=== PATIENT | female | born 1960 | race Caucasian/White ===

== ENCOUNTER 2018-02-19 10:41 | Inpatient (IN) | payer BC, OTHER ==
[2018-02-19] MEDS ORDERED: ONDANSETRON 4 MG TAB.RAPDIS PO ONE (11:05)
--- NOTE | 2018-02-19 11:06 | ER Document Report ---
ED Medical Screen (RME) - General Chief Complaint: Abdominal Pain Stated Complaint: CONSTIPATION/VOMITING Time Seen by Provider: 02/19/18 10:59 TRAVEL OUTSIDE OF THE [place] IN LAST 30 DAYS: No - HPI Notes: 02/19/18 11:05 Constipation nausea vomiting ongoing for a week [facility] center for further evaluation and generic [id number] stool softeners - Related Data Allergies/Adverse Reactions: magnesium citrate Adverse Reaction (Verified 02/19/18 10:43) VOMITING Past Medical History - Social History Frequency of alcohol use: None Drug Abuse: None - Past Medical History Cardiac Medical History: Reports: Hx Hypertension Renal/ Medical History: Denies: Hx Peritoneal Dialysis Past Surgical History: Reports: Hx Cholecystectomy, Hx Orthopedic Surgery - knee surgery, Hx Tonsillectomy Review of Systems - Review of Systems Gastrointestinal: Abdominal pain, Vomiting, Constipation Physical Exam - Vital signs Vitals: Temp Pulse Resp BP Pulse Ox 98.1 F 100 20 171/73 H 96 02/19/18 10:51 02/19/18 10:51 02/19/18 10:51 02/19/18 10:51 02/19/18 10:51 - Respiratory Respiratory status: No respiratory distress Chest status: Nontender Breath sounds: Normal Chest palpation: Normal - Cardiovascular Rhythm: Regular Heart sounds: Normal auscultation Course - Vital Signs Vital signs: Temp Pulse Resp BP Pulse Ox 98.1 F 100 20 171/73 H 96 02/19/18 10:51 02/19/18 10:51 02/19/18 10:51 02/19/18 10:51 02/19/18 10:51
[2018-02-19 11:24] LABS: ABSOLUTE LYMPHOCYTES (AUTO) 1.9 10^3/uL (0.5-4.7); ABSOLUTE MONOCYTES (AUTO) 0.9 10^3/uL (0.1-1.4); ABSOLUTE NEUT (AUTO) 7.7 10^3/uL (1.7-8.2); BASOPHILS % (AUTO) 0.4 % (0-2); EOSINOPHILS % (AUTO) 0.3 % (0-6); HEMATOCRIT 46.1 % (36.0-47.0); HEMOGLOBIN 15.6 g/dL (12.0-15.5); LYMPHOCYTES % (AUTO) 18.1 % (13-45); MEAN CORPUSCULAR HEMOGLOBIN 29.6 pg (27.0-33.4); MEAN CORPUSCULAR HGB CONC 33.8 g/dL (32.0-36.0); MEAN CORPUSCULAR VOLUME 87 fl (80-97); MONOCYTES % (AUTO) 8.4 % (3-13); PLATELET COUNT 317 10^3/uL (150-450); RED BLOOD COUNT 5.27 10^6/uL (3.72-5.28); RED CELL DISTRIBUTION WIDTH 16.4 % (11.5-14.0); SEGMENTED NEUTROPHILS % (AUTO) 72.8 % (42-78); TOTAL CELLS COUNTED % (AUTO) 100 %; WHITE BLOOD COUNT 10.6 10^3/uL (4.0-10.5)
[2018-02-19 11:45] LABS: ALANINE AMINOTRANSFERASE 20 U/L (9-52); ALBUMIN 4.5 g/dL (3.5-5.0); ALKALINE PHOSPHATASE 100 U/L (38-126); ANION GAP 15 (5-19); ASPARTATE AMINO TRANSFERASE 18 U/L (14-36); BILIRUBIN,DIRECT 0.2 mg/dL (0.0-0.4); BILIRUBIN,TOTAL 0.7 mg/dL (0.2-1.3); BLOOD UREA NITROGEN 7 mg/dL (7-20); CALCIUM 9.9 mg/dL (8.4-10.2); CARBON DIOXIDE 25 mmol/L (22-30); CHLORIDE 103 mmol/L (98-107); GLUCOSE 104 mg/dL (75-110); LIPASE 25.9 U/L (23-300); POTASSIUM 4.1 mmol/L (3.6-5.0); SODIUM 142.9 mmol/L (137-145); TOTAL PROTEIN 7.1 g/dL (6.3-8.2)
--- NOTE | 2018-02-19 11:54 | RADIOLOGY REPORT (SQ) ---
EXAM DESCRIPTION: ACUTE ABDOMEN SERIES COMPLETED DATE/TIME: 02/19/2018 11:28 am REASON FOR STUDY: constipation abd pain COMPARISON: None. NUMBER OF VIEWS: Three views. TECHNIQUE: Frontal chest, supine abdomen and upright/decubitus abdomen radiographic images acquired. LIMITATIONS: None. FINDINGS: CHEST: Lungs clear of infiltrates. FREE AIR: None. No abnormal gas collections. BOWEL GAS PATTERN: There is mild colonic distention with infrequent air-fluid levels on the upright v iew. No free air. There is a moderate amount of stool throughout the colon. CALCIFICATIONS: No suspicious calcifications. HARDWARE: There are surgical clips in the right upper quadrant. SOFT TISSUES: No gross mass or suggestion of organomegaly. BONES: No acute fracture. No worrisome bone lesions. OTHER: No other significant finding. IMPRESSION: Gas pattern is nonobstructive. There is a moderate amount of stool throughout the colon . TECHNICAL DOCUMENTATION: JOB ID: [id number] [employer]- All Rights Reserved Reading location - IP/workstation name: [email or web address]
[2018-02-19] MEDS ORDERED: DICYCLOMINE HCL 20 MG TABLET PO ONE (12:43)
[2018-02-19] MEDS ORDERED: NORMAL SALINE 1000 ML 1,000 ML IV ONE (12:43)
[2018-02-19] MEDS ORDERED: LISINOPRIL 10 MG TABLET PO ONE (12:43)
[2018-02-19] MEDS ORDERED: MINERAL OIL 30 ML UDCUP PR ONE (12:44)
--- NOTE | 2018-02-19 12:48 | ER Document Report ---
ED GI/ - General Chief Complaint: Abdominal Pain Stated Complaint: CONSTIPATION/VOMITING Time Seen by Provider: 02/19/18 10:59 Mode of Arrival: Ambulatory Information source: Patient Notes: Patient presents complaining of a one-week history of low abdominal pain. Patient states that she has had nausea and vomiting since yesterday. Patient states that she has had issues with constipation and has been using laxatives [id number] without any improvement. Patient does report one small bowel movement yesterday. Patient does report a previous history of diverticulitis in the past. TRAVEL OUTSIDE OF THE [place] IN LAST 30 DAYS: No - HPI Patient complains to provider of: Abdominal pain, Vomiting. No: Diarrhea Onset: Last week Timing/Duration: Worse Quality of pain: Cramping Pain Level: 3 Vaginal bleeding (Compared to normal period): None Associated symptoms: Constipation, Nausea, Vomiting. denies: Diarrhea, Dysuria , Fever, Urinary hesitancy, Urinary frequency, Urinary retention Exacerbated by: Denies Relieved by: Denies Similar symptoms previously: Yes Recently seen / treated by doctor: No - Related Data Allergies/Adverse Reactions: magnesium citrate Adverse Reaction (Verified 02/19/18 10:43) VOMITING Past Medical History - General Information source: Patient - Social History Smoking Status: Current Every Day Smoker Frequency of alcohol use: None Drug Abuse: None Occupation: Office work Lives with: Family Family History: Reviewed & Not Pertinent Patient has suicidal ideation: No Patient has homicidal ideation: No - Past Medical History Cardiac Medical History: Reports: Hx Hypertension Renal/ Medical History: Denies: Hx Peritoneal Dialysis GI Medical History: Reports: Hx Diverticulitis Past Surgical History: Reports: Hx Cholecystectomy, Hx Orthopedic Surgery - knee surgery, Hx Tonsillectomy Review of Systems - Review of Systems Constitutional: No symptoms reported. denies: Fever, Recent illness EENT: No symptoms reported Cardiovascular: No symptoms reported. denies: Chest pain Respiratory: No symptoms reported. denies: Cough, Short of breath Gastrointestinal: Abdominal pain, Nausea, Vomiting, Constipation. denies: Diarrhea, Poor appetite Genitourinary: No symptoms reported. denies: Dysuria, Flank pain Female Genitourinary: No symptoms reported Musculoskeletal: No symptoms reported. denies: Back pain Skin: No symptoms reported Hematologic/Lymphatic: No symptoms reported Neurological/Psychological: No symptoms reported Physical Exam - Vital signs Vitals: Temp Pulse Resp BP Pulse Ox 98.1 F 100 20 171/73 H 96 02/19/18 10:51 02/19/18 10:51 02/19/18 10:51 02/19/18 10:51 02/19/18 10:51 - General General appearance: Appears well, Alert In distress: None - HEENT Head: Normocephalic, Atraumatic Eyes: Normal Conjunctiva: Normal Neck: Normal, Supple. No: Lymphadenopathy - Respiratory Respiratory status: No respiratory distress Chest status: Nontender Breath sounds: Normal. No: Rales, Rhonchi, Stridor, Wheezing Chest palpation: Normal - Cardiovascular Rhythm: Regular Heart sounds: S1 appreciated, S2 appreciated Murmur: No - Abdominal Inspection: Normal Distension: No distension Bowel sounds: Normal Tenderness: Tender - Generalized abdominal tenderness. No: Guarding Organomegaly: No organomegaly - Back Back: Normal, Nontender. No: CVA tenderness - Extremities General upper extremity: Normal inspection, Normal ROM General lower extremity: Normal inspection, Normal ROM - Neurological Neuro grossly intact: Yes Cognition: Normal Molly Coma Scale Eye Opening: Spontaneous [place] Coma Scale Verbal: Oriented Molly Coma Scale Motor: Obeys Commands Molly Coma Scale Total: 15 - Psychological Associated symptoms: Normal affect, Normal mood - Skin Skin Temperature: Warm Skin Moisture: Dry Skin Color: Normal Course - Re-evaluation Re-evalutation: 02/19/18 14:46 Patient reports abdominal pain is improved somewhat after taking the Bentyl as well as IV fluids. Patient states nausea and vomiting has improved. Patient with only small amount returned after enema. 02/19/18 15:22 Patient complains of continued abdominal pain. Additional imaging ordered. 02/19/18 19:[address] Quigley regarding patient's CT scan report. Recommends consultation with surgeon. Consulted with Dr. Huizar regarding patient CT report. Recommends consultation with hospitalist and that if patient is admitted he will be happy to consult on patient. 02/19/18 19:[address] Lee who declines excepting patient for admission, recommends having surgery to admit the patient. Consulted with Dr. Huizar again , Dr. Huizar reviewed patient's CT images and agrees to come and evaluate patient. 02/19/18 20:27 Dr. Huizar evaluated patient and plans to take patient to the OR for bowel obstruction. - Vital Signs Vital signs: Temp Pulse Resp BP Pulse Ox 99.1 F 90 16 142/72 H 96 02/19/18 17:36 02/19/18 17:36 02/19/18 17:36 02/19/18 17:36 02/19/18 17:36 - Laboratory Result Diagrams: 02/19/18 11:11 02/19/18 11:11 Laboratory results interpreted by me: 02/19/18 11:11 WBC 10.6 H Hgb 15.6 H RDW 16.4 H 02/19/18 18:52 Labs- Entire Visit 02/19/18 02/19/18 11:11 11:11 WBC 10.6 H RBC 5.27 Hgb 15.6 H Hct 46.1 MCV 87 MCH 29.6 MCHC 33.8 RDW 16.4 H Plt Count 317 Seg Neutrophils % 72.8 Lymphocytes % 18.1 Monocytes % 8.4 Eosinophils % 0.3 Basophils % 0.4 Absolute Neutrophils 7.7 Absolute Lymphocytes 1.9 Absolute Monocytes 0.9 Absolute Eosinophils 0.0 Absolute Basophils 0.0 Sodium 142.9 Potassium 4.1 Chloride 103 Carbon Dioxide 25 Anion Gap 15 BUN 7 Creatinine 0.57 Est GFR ( Amer) > 60 Est GFR (Non-Af Amer) > 60 Glucose 104 Calcium 9.9 Total Bilirubin 0.7 Direct Bilirubin 0.2 Neonat Total Bilirubin Not Reportable Neonat Direct Bilirubin Not Reportable Neonat Indirect Bili Not Reportable AST 18 ALT 20 Alkaline Phosphatase 100 Total Protein 7.1 Albumin 4.5 Lipase 25.9 02/19/18 19:36 Labs- Entire Visit 02/19/18 02/19/18 11:11 11:11 WBC 10.6 H RBC 5.27 Hgb 15.6 H Hct 46.1 MCV 87 MCH 29.6 MCHC 33.8 RDW 16.4 H Plt Count 317 Seg Neutrophils % 72.8 Lymphocytes % 18.1 Monocytes % 8.4 Eosinophils % 0.3 Basophils % 0.4 Absolute Neutrophils 7.7 Absolute Lymphocytes 1.9 Absolute Monocytes 0.9 Absolute Eosinophils 0.0 Absolute Basophils 0.0 Sodium 142.9 Potassium 4.1 Chloride 103 Carbon Dioxide 25 Anion Gap 15 BUN 7 Creatinine 0.57 Est GFR ( Amer) > 60 Est GFR (Non-Af Amer) > 60 Glucose 104 Calcium 9.9 Total Bilirubin 0.7 Direct Bilirubin 0.2 Neonat Total Bilirubin Not Reportable Neonat Direct Bilirubin Not Reportable Neonat Indirect Bili Not Reportable AST 18 ALT 20 Alkaline Phosphatase 100 Total Protein 7.1 Albumin 4.5 Lipase 25.9 - Diagnostic Test Radiology reviewed: Reports reviewed Discharge - Discharge Clinical Impression: Abdominal pain Qualifiers: Abdominal location: unspecified location Qualified Code(s): R10.9 - Unspecified abdominal pain Bowel obstruction Qualifiers: Intestinal obstruction type: unspecified Intestinal obstruction extent: unspecified extent Qualified Code(s): K56.609 - Unspecified intestinal obstruction, unspecified as to partial versus complete obstruction Condition: Stable Disposition: ADMITTED INPATIENT Admitting Provider: Surgicalist Unit Admitted: Medical Floor
[2018-02-19] MEDS ORDERED: PROCHLORPERAZINE EDISYLATE INJ 10 MG/2 ML VIAL IV ONE (15:41)
--- NOTE | 2018-02-19 18:51 | RADIOLOGY REPORT (SQ) ---
EXAM DESCRIPTION: CT ABD/PELVIS WITH IV ORAL COMPLETED DATE/TIME: 02/19/2018 6:37 pm REASON FOR STUDY: abd pain, n/v COMPARISON: None. TECHNIQUE: CT scan of the abdomen and pelvis performed using helical scanning technique with dynamic intravenous contrast injection. No oral contrast. Images reviewed with lung, soft tissue, and bone windows. Reconstructed coronal and sagittal MPR images reviewed. Delayed images for evaluation of the urinary system also acquired. All images stored on PACS. All CT scanners at this facility use dose modulation, iterative reconstruction, and/or weight based d osing when appropriate to reduce radiation dose to as low as reasonably achievable (ALARA). [facility]: Dose Right [facility]: CareDose [facility]: Dose Right [facility]: Teradose 4D [facility]: SeatMe CONTRAST TYPE AND DOSE: contrast/concentration: Isovue 350.00 mg/ml; Total Contrast Delivered: 92.0 ml; Total Saline Delivered: 45.0 ml RENAL FUNCTION: BUN 7, creatinine 0.51 RADIATION DOSE: CT Rad equipment meets quality standard of care and radiation dose reduction techniq ues were employed. CTDIvol: 15.6 - 18.4 mGy. DLP: 1744 mGy-cm.. LIMITATIONS: None. FINDINGS: LOWER CHEST: No acute findings in the chest. There is a small hiatal hernia. LIVER: Normal size. No masses. No dilated ducts. SPLEEN: Normal size. No focal lesions. PANCREAS: No masses. No significant calcifications. No adjacent inflammation or peripancreatic fluid collections. Pancreatic duct not dilated. GALLBLADDER: No identified stones by CT criteria. No inflammatory changes to suggest cholecystitis. ADRENAL GLANDS: No significant masses or asymmetry. RIGHT KIDNEY AND URETER: No solid masses. No significant calcifications. No hydronephrosis or hyd roureter. LEFT KIDNEY AND URETER: There are small hypoattenuating lesions most likely cysts but too small accur ately characterize. No significant calcifications. No hydronephrosis or hydroureter. AORTA AND VESSELS: No aneurysm. No dissection. Renal arteries, SMA, celiac without stenosis. RETROPERITONEUM: No retroperitoneal adenopathy, hemorrhage or masses. BOWEL AND PERITONEAL CAVITY: There is fecal material throughout a dilated colon. Findings are suspic ious for obstipation. There is soft tissue attenuation in the sigmoid colon. This could represent o bstructing mass or fecal material. No small-bowel dilatation. APPENDIX: Normal. PELVIS: No mass. No free fluid. Normal bladder. ABDOMINAL WALL: No masses. No hernias. BONES: No significant or acute findings. OTHER: No other significant finding. IMPRESSION: Questionable soft tissue mass versus stool in the sigmoid colon. Proximal to this the c olon is dilated with fecal material. Sigmoid mass is suspected. TECHNICAL DOCUMENTATION: JOB ID: [id number] Quality ID # [id number]: Final reports with documentation of one or more dose reduction techniques (e.g., Au tomated exposure control, adjustment of the mA and/or kV according to patient size, use of iterative reconstruction technique) 2010 [employer]- All Rights Reserved Reading location - IP/workstation name: [email or web address]
[2018-02-19] MEDS ORDERED: PROMETHAZINE HCL INJ 25 MG/1 ML VIAL IV ONE (20:14)
--- NOTE | 2018-02-19 20:37 | PDOC H&P ---
History of Present Illness Patient complains of: abdominal pain, nausea, vomiting History of Present Illness: FLYNN SALTER I is a 57 year old female with a 2 day h/o increasing abdominal distention, pain, and obstipation. She has a h/o diverticulitis ( approximately 5 known occurrences) and a recent incomplete colonoscopy due to "kinking". The pt has had nausea and vomiting. She denies fevers, chills, chest pain, dizziness, orthostasis, headache, blurry vision, melena, hematochezia, hematemesis. Nothing makes her symptoms better or worse. Her pain does not radiate. She has no known family history of colon cancer. Past Medical History Cardiac Medical History: Reports: Hypertension GI Medical History: Reports: Diverticulitis Past Surgical History Past Surgical History: Reports: Cholecystectomy, Orthopedic Surgery - knee surgery, Tonsillectomy, Tubal Ligation Social History Lives with: Family Smoking Status: Current Every Day Smoker Frequency of Alcohol Use: Rare Hx Recreational Drug Use: No Hx Prescription Drug Abuse: No Family History Family History: Malignancy - brother with Pancreatic cancer Parental Family History Reviewed: Yes Children Family History Reviewed: Yes Sibling(s) Family History Reviewed.: Yes Medication/Allergy Allergies/Adverse Reactions: magnesium citrate Adverse Reaction (Verified 02/19/18 10:43) VOMITING Review of Systems Constitutional: PRESENT: anorexia. ABSENT: chills, fatigue, fever(s), headache( s), weakness Eyes: ABSENT: visual disturbances Ears: ABSENT: hearing changes Nose, Mouth, and Throat: ABSENT: sore throat Cardiovascular: ABSENT: chest pain, edema Respiratory: ABSENT: cough, dyspnea Gastrointestinal: PRESENT: abdominal pain, bloating, constipation, heartburn, nausea, vomiting. ABSENT: diarrhea, dysphagia, hematemesis, hematochezia, melena Musculoskeletal: ABSENT: back pain Integumentary: ABSENT: pruritus, rash Neurological: ABSENT: confusion, convulsions, dizziness Psychiatric: ABSENT: anxiety, depression Endocrine: ABSENT: cold intolerance, heat intolerance Hematologic/Lymphatic: ABSENT: easy bleeding, easy bruising Physical Exam Vital Signs: Temp Pulse Resp BP Pulse Ox 99.1 F 90 16 142/72 H 96 02/19/18 17:36 02/19/18 17:36 02/19/18 17:36 02/19/18 17:36 02/19/18 17:36 Intake & Output 02/18/18 02/19/18 02/20/18 06:59 06:59 06:59 Intake Total 1000 Balance 1000 Weight 85 kg General appearance: PRESENT: mild distress - abdominal discomfort Head exam: PRESENT: atraumatic, normocephalic Eye exam: PRESENT: EOMI, PERRLA. ABSENT: scleral icterus Mouth exam: PRESENT: neck supple Teeth exam: ABSENT: poor dentation Neck exam: ABSENT: meningismus, tenderness, thyromegaly, tracheal deviation Respiratory exam: PRESENT: clear to auscultation irais. ABSENT: chest wall tenderness Cardiovascular exam: PRESENT: RRR Pulses: PRESENT: normal radial pulses Vascular exam: PRESENT: normal capillary refill. ABSENT: pallor GI/Abdominal exam: PRESENT: distended, soft, tenderness. ABSENT: rebound, rigid Rectal exam: PRESENT: deferred Extremities exam: ABSENT: clubbing Musculoskeletal exam: ABSENT: deformity Neurological exam: PRESENT: alert, awake, oriented to person, oriented to place , oriented to time, oriented to situation, CN II-XII grossly intact Psychiatric exam: ABSENT: agitated, anxious, depressed Focused psych exam: ABSENT: delusional Skin exam: ABSENT: cyanosis, erythema, jaundice Results Laboratory Results: 02/19/18 11:11 02/19/18 11:11 02/19/18 02/19/18 11:11 11:11 WBC 10.6 H RBC 5.27 Hgb 15.6 H Hct 46.1 MCV 87 MCH 29.6 MCHC 33.8 RDW 16.4 H Plt Count 317 Seg Neutrophils % 72.8 Lymphocytes % 18.1 Monocytes % 8.4 Eosinophils % 0.3 Basophils % 0.4 Absolute Neutrophils 7.7 Absolute Lymphocytes 1.9 Absolute Monocytes 0.9 Absolute Eosinophils 0.0 Absolute Basophils 0.0 Sodium 142.9 Potassium 4.1 Chloride 103 Carbon Dioxide 25 Anion Gap 15 BUN 7 Creatinine 0.57 Est GFR ( Amer) > 60 Est GFR (Non-Af Amer) > 60 Glucose 104 Calcium 9.9 Total Bilirubin 0.7 AST 18 ALT 20 Alkaline Phosphatase 100 Total Protein 7.1 Albumin 4.5 Lipase 25.9 Impressions: Abdomen/Pelvis CT 02/19/18 00:00 IMPRESSION: Questionable soft tissue mass versus stool in the sigmoid colon. Proximal to this the colon is dilated with fecal material. Sigmoid mass is suspected. Acute Abdomen Series 02/19/18 11:04 IMPRESSION: Gas pattern is nonobstructive. There is a moderate amount of stool throughout the colon. Status: Image reviewed by me - CT scan with signs of complete obstruction at the recto-sigmoid junction. Assessment & Plan - Diagnosis (1) Colonic obstruction Is this a current diagnosis for this admission?: Yes - Plan Summary Plan Summary: 57 y/o F with abdominal pain, distention, nausea, vomiting, and obstipation. She has evidence of near-complete obstruction of her colon on CT scan. She has an area of intense thickening at the rectosigmoid junction. I have offered her surgical resection with colostomy placement for her obstruction. She has agreed to this. Risks/benefits discussed, informed consent obtained, and all questions answered.
[2018-02-19] MEDS ORDERED: CEFOXITIN INJ 1 GM VIAL IV ONE (21:09)
[2018-02-19] MEDS ORDERED: PROPOFOL INJ 200 MG/20 ML VIAL IV ONE (21:18)
[2018-02-19] MEDS ORDERED: MIDAZOLAM 2 MG/2 ML INJ ONE (21:18)
[2018-02-19] MEDS ORDERED: EPHEDRINE SULFATE INJ 50 MG/1 ML AMPULE ONE (21:18)
[2018-02-19] MEDS ORDERED: FENTANYL CITRATE INJ/PF 250 MCG/5 ML AMPULE ONE (21:18)
[2018-02-19] MEDS ORDERED: HYDROMORPHONE HCL INJ/PF 2 MG/ML AMPULE ONE (21:18)
[2018-02-19] MEDS ORDERED: CEFOXITIN SODIUM 2 GM in DEXTROSE 5%-WATER 100 ML IV ONE (21:30)
[2018-02-19] MEDS ORDERED: MEPERIDINE HCL/PF INJ 25 MG/1 ML DISP.SYRIN IV PRN (21:57)
[2018-02-19] MEDS ORDERED: FENTANYL CITRATE INJ/PF 100 MCG/2 ML AMPUL IV PRN ×3 (21:57)
[2018-02-19] MEDS ORDERED: PROMETHAZINE HCL INJ 25 MG/1 ML VIAL IV PRN ×2 (21:57)
[2018-02-19] MEDS ORDERED: ONDANSETRON HCL INJ/PF 4 MG/2 ML SDV IV PRN (21:57)
[2018-02-19] MEDS ORDERED: DIPHENHYDRAMINE HCL 50 MG/ML VIAL IV PRN (21:57)
[2018-02-20] MEDS ORDERED: ONDANSETRON HCL INJ/PF 4 MG/2 ML SDV IV PRN (02:17)
[2018-02-20] MEDS ORDERED: CEFOXITIN INJ 1 GM VIAL IV PRN (02:29)
[2018-02-20] MEDS: MORPHINE SULFATE 10 MG/ML INJ IV PRN ×3 (02:34→16:59)
[2018-02-20] MEDS: DEXTROSE 5%-LACTATED RINGERS 1,000 ML IV PRN ×2 (02:35→13:58)
[2018-02-20] MEDS: ACETAMINOPHEN 1,000 MG/100 ML RTUPB IV SCH ×3 (03:32→18:56)
[2018-02-20] MEDS ORDERED: CEFOXITIN INJ 1 GM VIAL ONE (05:26)
[2018-02-20] MEDS: CEFOXITIN SODIUM 2 GM in DEXTROSE 5%-WATER 100 ML IV SCH ×2 (05:36→13:58)
[2018-02-20] MEDS: KETOROLAC TROMETHAMINE INJ/PF 30 MG/1 ML SDV IV SCH ×3 (05:37→22:11)
[2018-02-20] MEDS ORDERED: ONDANSETRON HCL INJ/PF 4 MG/2 ML SDV ONE (09:01)
[2018-02-20] MEDS ORDERED: SUCCINYLCHOLINE CHLORIDE INJ 200 MG/10 ML VIAL ONE (09:01)
[2018-02-20] MEDS ORDERED: NEOSTIGMINE METHYLSULFATE 10 MG/10 ML VIAL ONE (09:01)
[2018-02-20] MEDS ORDERED: GLYCOPYRROLATE 1 MG/5 ML SYRINGE ONE (09:01)
[2018-02-20] MEDS ORDERED: ROCURONIUM BROMIDE INJ 50 MG/5 ML VIAL IV ONE (09:01)
[2018-02-20] MEDS: ENOXAPARIN SODIUM INJ 40 MG/0.4 ML DISP.SYRIN SUBCUT SCH (10:36)
[2018-02-20] MEDS: FAMOTIDINE INJ/PF 20 MG/2 ML SDV IV SCH ×2 (10:36→22:11)
[2018-02-20 11:13] LABS: ABSOLUTE LYMPHOCYTES (AUTO) 0.6 10^3/uL (0.5-4.7); ABSOLUTE MONOCYTES (AUTO) 0.5 10^3/uL (0.1-1.4); ABSOLUTE NEUT (AUTO) 6.3 10^3/uL (1.7-8.2); BASOPHILS % (AUTO) 0.1 % (0-2); EOSINOPHILS % (AUTO) 0.1 % (0-6); HEMATOCRIT 39.3 % (36.0-47.0); LYMPHOCYTES % (AUTO) 7.8 % (13-45); MEAN CORPUSCULAR HGB CONC 32.9 g/dL (32.0-36.0); MEAN CORPUSCULAR VOLUME 88 fl (80-97); MONOCYTES % (AUTO) 6.5 % (3-13); PLATELET COUNT 240 10^3/uL (150-450); RED BLOOD COUNT 4.47 10^6/uL (3.72-5.28); RED CELL DISTRIBUTION WIDTH 15.8 % (11.5-14.0); SEGMENTED NEUTROPHILS % (AUTO) 85.5 % (42-78); TOTAL CELLS COUNTED % (AUTO) 100 %; WHITE BLOOD COUNT 7.3 10^3/uL (4.0-10.5)
[2018-02-20 11:25] LABS: ANION GAP 9 (5-19); BLOOD UREA NITROGEN 9 mg/dL (7-20); CALCIUM 8.6 mg/dL (8.4-10.2); CARBON DIOXIDE 25 mmol/L (22-30); CHLORIDE 105 mmol/L (98-107); GLUCOSE 131 mg/dL (75-110); POTASSIUM 4.9 mmol/L (3.6-5.0); SODIUM 138.5 mmol/L (137-145)
[2018-02-21] MEDS ORDERED: FUROSEMIDE INJ/PF 40 MG/4 ML SDV IV ONE (01:00)
[2018-02-21] MEDS: DEXTROSE 5%-LACTATED RINGERS 1,000 ML IV PRN ×2 (01:44→10:50)
[2018-02-21] MEDS: ACETAMINOPHEN 1,000 MG/100 ML RTUPB IV SCH ×2 (03:00→10:50)
[2018-02-21 03:56] LABS: ABSOLUTE MONOCYTES (AUTO) 0.7 10^3/uL (0.1-1.4); ABSOLUTE NEUT (AUTO) 8.7 10^3/uL (1.7-8.2); BASOPHILS % (AUTO) 0.2 % (0-2); EOSINOPHILS % (AUTO) 0.3 % (0-6); HEMATOCRIT 34.7 % (36.0-47.0); HEMOGLOBIN 11.6 g/dL (12.0-15.5); LYMPHOCYTES % (AUTO) 9.6 % (13-45); MEAN CORPUSCULAR HEMOGLOBIN 29.4 pg (27.0-33.4); MEAN CORPUSCULAR HGB CONC 33.5 g/dL (32.0-36.0); MEAN CORPUSCULAR VOLUME 88 fl (80-97); MONOCYTES % (AUTO) 6.9 % (3-13); PLATELET COUNT 202 10^3/uL (150-450); RED BLOOD COUNT 3.96 10^6/uL (3.72-5.28); RED CELL DISTRIBUTION WIDTH 15.4 % (11.5-14.0); TOTAL CELLS COUNTED % (AUTO) 100 %; WHITE BLOOD COUNT 10.5 10^3/uL (4.0-10.5)
[2018-02-21 04:11] LABS: ANION GAP 7 (5-19); BLOOD UREA NITROGEN 9 mg/dL (7-20); CALCIUM 8.5 mg/dL (8.4-10.2); CARBON DIOXIDE 27 mmol/L (22-30); CHLORIDE 106 mmol/L (98-107); GLUCOSE 114 mg/dL (75-110); POTASSIUM 4.5 mmol/L (3.6-5.0); SODIUM 140.1 mmol/L (137-145)
[2018-02-21] MEDS: KETOROLAC TROMETHAMINE INJ/PF 30 MG/1 ML SDV IV SCH ×2 (06:36→14:33)
--- NOTE | 2018-02-21 10:05 | Operative Report ---
Nonrecallable Operative Report DATE OF SURGERY: 02/20/18 PREOPERATIVE DIAGNOSIS: Colonic obstruction POSTOPERATIVE DIAGNOSIS: 1. Distal colonic obstruction at the level of the rectosigmoid junction. 2. Involvement of the appendix in the inflammatory process. 3. No evidence of malignant process grossly. OPERATION: 1. Exploratory laparotomy. 2. Descending/sigmoid colon resection. 3. Appendectomy. 4. Splenic flexure mobilization. 5. Endloop left lower quadrant colostomy. SURGEON: ERLINDA JUAREZ ANESTHESIA: GA TISSUE REMOVED OR ALTERED: 1. descending and sigmoid colon. 2. Appendix COMPLICATIONS: Appendix involved with the inflammation, requiring resection. ESTIMATED BLOOD LOSS: 300 cc PROCEDURE: Drains/implants: None. Procedure in detail: After informed consent was obtained, the patient was brought to the operating room and laid in the supine position. The area of the abdomen was prepped and draped in a normal, sterile fashion. A 10 blade scalpel was used to create an incision from just above the umbilicus to the pubis. Dissection was carried through the subcutaneous tissue using sharp and blunt dissection. The linea alba fascia was incised sharply. The abdomen was entered sharply. The Omni retractor was placed on the patient and used for retraction. There was a dense inflammatory process in the pelvis at approximately the level of the rectosigmoid junction. There was adhesions of the small bowel to this area. These were lysed easily. The appendix was densely adherent to the sigmoid colon. The appendix was carefully elevated away from the area of inflammation, however it was damaged during this maneuver. After inspection, it was felt necessary to remove the appendix. The mesoappendix was taken down using clamps and ties. The base of the appendix was ligated using 0 Vicryl suture x2. The appendix was amputated and passed off the field. Attention was then turned to the freeing of the sigmoid colon. The entire colon was massively dilated and full of thick, semi-solid stool. An enterotomy was created and decompression of the colon was undertaken. The proximal sigmoid colon was then closed using the contour stapler. Once the proximal sigmoid colon was divided, the descending colon was displaced superiorly, to facilitate visualization. The sigmoid colon was then elevated away from the left lower pelvic sidewall. This was done with great care, so as not to injure the ureter. This was done using sharp and blunt dissection. The inflammation extended inferiorly down to the rectosigmoid junction. The sigmoid colon was freed from the mesentery and elevated anteriorly. Once an area distal to the inflammation could be reached, the distal colon was divided using the contour stapling device. The rectal stump was marked with a Prolene suture. The sigmoid colon was then passed off the field and sent to pathology. Next, attention was turned to assessing the colon for colostomy. The remaining sigmoid and descending colon were then inspected. They appeared somewhat dusky. Secondary to this, the splenic flexure was taken down. The white line of Toldt on the left was divided using Bovie electrocautery. The omentum was freed from the transverse colon, also using Bovie electrocautery. After the splenic flexure was completely mobilized, the proximal descending colon appeared pink and healthy. The unhealthy portion of the sigmoid and descending colon were then divided with the contour stapling device. They were removed from the mesentery using the LigaSure device. After this was completed , an incision was created in the left lower quadrant skin. Dissection was carried through the subcutaneous tissue using blunt dissection. A cruciate incision was created in the fascia. The proximal descending colon was then brought out through the incision. The abdomen was then copiously irrigated and suctioned. Attention was then turned to closure of the abdomen. The midline fascia was closed using #1 double-stranded, looped PDS suture in simple running fashion. The overlying skin was loosely approximated using skin beatriz. The skin was packed with Xeroform gauze. Attention was then turned to maturing of the colostomy. The left lower quadrant colostomy was performed in end-loop fashion. A 24 Serbian Gordon was used as a bar to elevate the ostomy. An incision was created in the colon using electrocautery. The colostomy was matured in Dianna fashion using 3-0 Vicryl suture, circumferentially. Once this was completed, an ostomy appliance was placed, and the procedure was concluded. All sponge, instrument, and needle counts were correct x2. Condition: Fair.
[2018-02-21] MEDS: FAMOTIDINE INJ/PF 20 MG/2 ML SDV IV SCH (10:50)
[2018-02-21] MEDS: ENOXAPARIN SODIUM INJ 40 MG/0.4 ML DISP.SYRIN SUBCUT SCH (10:51)
[2018-02-21] MEDS ORDERED: HYDROCODONE/ACETAMINOPHEN 10-325 MG TABLET PO PRN (17:06)
--- NOTE | 2018-02-21 19:52 | PDOC PROGRESS REPORT ---
Subjective Reason For Visit: COLONIC OBSTRUCTION Physical Exam Vital Signs: Temp Pulse Resp BP Pulse Ox 98.6 F 85 27 H 125/69 94 02/21/18 16:00 02/21/18 08:00 02/21/18 19:00 02/21/18 16:16 02/21/18 19:00 Intake & Output 02/20/18 02/21/18 02/22/18 06:59 06:59 06:59 Intake Total 6200 2400 1717 Output Total 175 2420 1630 Balance 6025 -20 87 Weight 89.1 kg 89.4 kg Results Laboratory Results: 02/21/18 03:51 02/21/18 03:51 02/21/18 02/21/18 03:51 03:51 WBC 10.5 RBC 3.96 Hgb 11.6 L Hct 34.7 L MCV 88 MCH 29.4 MCHC 33.5 RDW 15.4 H Plt Count 202 Seg Neutrophils % 83.0 H Lymphocytes % 9.6 L Monocytes % 6.9 Eosinophils % 0.3 Basophils % 0.2 Absolute Neutrophils 8.7 H Absolute Lymphocytes 1.0 Absolute Monocytes 0.7 Absolute Eosinophils 0.0 Absolute Basophils 0.0 Sodium 140.1 Potassium 4.5 Chloride 106 Carbon Dioxide 27 Anion Gap 7 BUN 9 Creatinine 0.48 L Est GFR ( Amer) > 60 Est GFR (Non-Af Amer) > 60 Glucose 114 H Calcium 8.5 Impressions: Abdomen/Pelvis CT 02/19/18 00:00 IMPRESSION: Questionable soft tissue mass versus stool in the sigmoid colon. Proximal to this the colon is dilated with fecal material. Sigmoid mass is suspected. Acute Abdomen Series 02/19/18 11:04 IMPRESSION: Gas pattern is nonobstructive. There is a moderate amount of stool throughout the colon. Assessment & Plan - Diagnosis (1) Colonic obstruction Is this a current diagnosis for this admission?: Yes - Plan Summary Plan Summary: This is a 57-year-old female status post sigmoid colon resection and descending colostomy. The patient is doing well today. She is tolerating liquids. Her colostomy is pink and productive. I will advance her diet. I will transfer her out of the ICU. Aggressive pulmonary toilet. Ambulate/out of bed. Begin oral pain meds.
[2018-02-21] MEDS ORDERED: ACETAMINOPHEN 325 MG TABLET ONE (20:33)
[2018-02-21] MEDS: ACETAMINOPHEN 325 MG TABLET PO PRN (20:40)
[2018-02-22] MEDS: FAMOTIDINE 20 MG TABLET PO SCH ×3 (00:14→21:59)
[2018-02-22] MEDS: KETOROLAC TROMETHAMINE INJ/PF 30 MG/1 ML SDV IV SCH ×4 (00:15→21:59)
[2018-02-22 04:41] LABS: ANION GAP 7 (5-19); BLOOD UREA NITROGEN 9 mg/dL (7-20); CALCIUM 8.4 mg/dL (8.4-10.2); CARBON DIOXIDE 26 mmol/L (22-30); CHLORIDE 107 mmol/L (98-107); GLUCOSE 83 mg/dL (75-110); POTASSIUM 3.8 mmol/L (3.6-5.0); SODIUM 139.5 mmol/L (137-145)
[2018-02-22] MEDS: ENOXAPARIN SODIUM INJ 40 MG/0.4 ML DISP.SYRIN SUBCUT SCH (10:15)
[2018-02-22] MEDS: ACETAMINOPHEN 325 MG TABLET PO PRN (16:08)
--- NOTE | 2018-02-22 18:42 | PDOC PROGRESS REPORT ---
Subjective Progress Note for:: 02/22/18 Reason For Visit: COLONIC OBSTRUCTION Physical Exam Vital Signs: Temp Pulse Resp BP Pulse Ox 98.0 F 103 H 18 145/68 H 96 02/22/18 10:00 02/22/18 10:00 02/22/18 10:00 02/22/18 10:00 02/22/18 10:00 Intake & Output 02/21/18 02/22/18 02/23/18 06:59 06:59 06:59 Intake Total 2400 2117 Output Total 2420 2630 1050 Balance -20 -513 -1050 Weight 89.4 kg 91.2 kg Results Laboratory Results: 02/21/18 03:51 02/22/18 03:53 02/22/18 03:53 Sodium 139.5 Potassium 3.8 Chloride 107 Carbon Dioxide 26 Anion Gap 7 BUN 9 Creatinine 0.58 Est GFR ( Amer) > 60 Est GFR (Non-Af Amer) > 60 Glucose 83 Calcium 8.4 Impressions: Abdomen/Pelvis CT 02/19/18 00:00 IMPRESSION: Questionable soft tissue mass versus stool in the sigmoid colon. Proximal to this the colon is dilated with fecal material. Sigmoid mass is suspected. Acute Abdomen Series 02/19/18 11:04 IMPRESSION: Gas pattern is nonobstructive. There is a moderate amount of stool throughout the colon. Assessment & Plan - Diagnosis (1) Colonic obstruction Is this a current diagnosis for this admission?: Yes - Plan Summary Plan Summary: This is a 57-year-old female status post sigmoid colon resection and descending colostomy. The patient is doing well today. She is tolerating liquids. Her colostomy is pink and productive. She is tolerating a diet. Aggressive pulmonary toilet. Ambulate/out of bed. Cont current pain meds.
[2018-02-23] MEDS: KETOROLAC TROMETHAMINE INJ/PF 30 MG/1 ML SDV IV SCH (06:22)
--- NOTE | 2018-02-23 07:26 | PDOC DISCHARGE SUMMARY ---
General - Admit/Disc Date/PCP Admission Date/Primary Care Provider: 02/19/18 20:44 Discharge Date: 02/23/18 - Discharge Diagnosis (1) Colonic obstruction Is this a current diagnosis for this admission?: Yes - Additional Information Discharge Diet: Regular Discharge Activity: No Lifting Over 10 Pounds Home Medications: Fexofenadine HCl [Suzi Allergy] 180 mg PO DAILY 02/20/18 Fluticasone Propionate [Flonase Nasal Buchanan 50 Mcg/Buchanan 16 gm] 1 spray NASL Q12 02/20/18 Lisinopril [Prinivil] 20 mg PO DAILY 02/20/18 Multivitamin [Daily Multiple Vitamin] 1 each PO DAILY 02/20/18 Naproxen [Naprosyn 375 Mg Tablet] 375 mg PO BIDP PRN 02/20/18 History of Present Illness History of Present Illness: FLYNN SALTER I is a 57 year old female with a 2 day h/o increasing abdominal distention, pain, and obstipation. She has a h/o diverticulitis ( approximately 5 known occurrences) and a recent incomplete colonoscopy due to "kinking". The pt has had nausea and vomiting. She denies fevers, chills, chest pain, dizziness, orthostasis, headache, blurry vision, melena, hematochezia, hematemesis. Nothing makes her symptoms better or worse. Her pain does not radiate. She has no known family history of colon cancer. Hospital Course Hospital Course: Patient was admitted for a colonic obstruction and taken to the operating room. Exploratory laparotomy was performed, where a tight stricture at the rectosigmoid junction was identified. The patient underwent a Chatman's procedure with descending colostomy. The patient was taken to the intensive care unit for close monitoring. The patient has done well after surgery. She is now ambulating, tolerating a diet, her bowels are moving, her pain is controlled with oral pain medications, and it was felt that she is reached maximal hospital benefit. At this time the patient is medically fit for discharge. Physical Exam Vital Signs: Temp Pulse Resp BP Pulse Ox 98.0 F 103 H 24 H 145/68 H 94 02/23/18 06:23 02/23/18 06:23 02/23/18 06:23 02/23/18 06:23 02/23/18 06:23 Intake & Output 02/22/18 02/23/18 02/24/18 06:59 06:59 06:59 Intake Total 2117 Output Total 2629 2049 Balance -513 -2049 Weight 91.2 kg Results Laboratory Results: 02/21/18 03:51 02/22/18 03:53 Impressions: Abdomen/Pelvis CT 02/19/18 00:00 IMPRESSION: Questionable soft tissue mass versus stool in the sigmoid colon. Proximal to this the colon is dilated with fecal material. Sigmoid mass is suspected. Acute Abdomen Series 02/19/18 11:04 IMPRESSION: Gas pattern is nonobstructive. There is a moderate amount of stool throughout the colon. Qualifiers - * PATIENT BEING DISCHARGED WITH ANY OF THE FOLLOWING DIAGNOSIS: No Plan Discharge Plan: Discharge home. Diet as tolerated. Activity: No lifting greater than 10 pounds x 6 weeks. Follow-up with me in 7 days. Okay to shower. No tub baths or swimming. [place] 10/325 mg p.o. every 6 hours as needed for pain. Time Spent: Less than 30 Minutes
[2018-02-23] MEDS: FAMOTIDINE 20 MG TABLET PO SCH (09:13)
[2018-02-23] MEDS: ENOXAPARIN SODIUM INJ 40 MG/0.4 ML DISP.SYRIN SUBCUT SCH ×2 (09:13→09:17)
[2018-02-23 10:56] VITALS: BP 165/85
== END 2018-02-23 10:44 | disposition home or self-care (01) | DRG 330 ==
LOC: ER 10:41 → EH 20:44 → ICU 02-20 02:11
PROVIDERS: ADMIT Surgery; ATTEND Surgery
PROC: 0DBM0ZZ Excision of Descending Colon, Open Approach (ICD-10-PCS; 2018-02-19)
PROC: 0D1M0Z4 Bypass Descending Colon to Cutaneous, Open Approach (ICD-10-PCS; 2018-02-19)
PROC: 0DTJ0ZZ Resection of Appendix, Open Approach (ICD-10-PCS; 2018-02-19)
PROC: 0DTN0ZZ Resection of Sigmoid Colon, Open Approach (ICD-10-PCS; principal; 2018-02-19 21:45)
DX: K56.691 Other complete intestinal obstruction (principal); K57.32 Diverticulitis of large intestine without perforation or abscess without bleeding; I10 Essential (primary) hypertension; F17.200 Nicotine dependence, unspecified, uncomplicated; K38.9 Disease of appendix, unspecified; Z90.49 Acquired absence of other specified parts of digestive tract; Z98.51 Tubal ligation status; Z80.0 Family history of malignant neoplasm of digestive organs; Z79.899 Other long term (current) drug therapy
CPT/HCPCS: 36415; 74022; 74177; 790; 80048; 80053; 83690; 83735; 85025; 88304; 88309; 88342; 94799; 96361; 96374; 96375; 99285; J0131; J0330; J0694; J0780; J1170; J1650; J1885; J2250; J2270; J2405; J2550; J2704; J3010; J3490; J7030; S0028; S0119

== ENCOUNTER 2018-07-21 05:33 | Day surgery (SDC) | payer OTHER ==
--- NOTE | 2018-07-14 10:49 | RADIOLOGY REPORT (SQ) ---
EXAM DESCRIPTION: CHEST PA/LATERAL COMPLETED DATE/TIME: 07/14/2018 10:36 am REASON FOR STUDY: PRE-OP COMPARISON: None. EXAM PARAMETERS: NUMBER OF VIEWS: two views TECHNIQUE: Digital Frontal and Lateral radiographic views of the chest acquired. RADIATION DOSE: NA LIMITATIONS: none FINDINGS: LUNGS AND PLEURA: No opacities, masses or pneumothorax. No pleural effusion. MEDIASTINUM AND HILAR STRUCTURES: No masses or contour abnormalities. HEART AND VASCULAR STRUCTURES: Heart normal size. No evidence for failure. BONES: No acute findings. HARDWARE: None in the chest. OTHER: No other significant finding. IMPRESSION: NO SIGNIFICANT RADIOGRAPHIC FINDING IN THE CHEST. TECHNICAL DOCUMENTATION: JOB ID: [id number] [employer]- All Rights Reserved Reading location - IP/workstation name: [email or web address]
[2018-07-14 11:48] LABS: HEMATOCRIT 44.3 % (36.0-47.0); MEAN CORPUSCULAR HEMOGLOBIN 27.8 pg (27.0-33.4); MEAN CORPUSCULAR VOLUME 82 fl (80-97); PLATELET COUNT 298 10^3/uL (150-450); RED CELL DISTRIBUTION WIDTH 17.9 % (11.5-14.0); WHITE BLOOD COUNT 7.9 10^3/uL (4.0-10.5)
[2018-07-14 12:15] LABS: ANION GAP 10 (5-19); BLOOD UREA NITROGEN 9 mg/dL (7-20); CALCIUM 10.2 mg/dL (8.4-10.2); CARBON DIOXIDE 27 mmol/L (22-30); CHLORIDE 105 mmol/L (98-107); GLUCOSE 97 mg/dL (75-110); POTASSIUM 4.6 mmol/L (3.6-5.0); SODIUM 141.8 mmol/L (137-145)
--- NOTE | 2018-07-14 17:19 | EKG REPORT ---
SEVERITY:- NORMAL ECG - SINUS RHYTHM : Confirmed by: Yancy Henderson 14-Jul-2018 17:18:40
[2018-07-21] MEDS ORDERED: ALBUTEROL SULFATE 0.083% NEB 2.5 MG/3 ML AMPUL NEB ONE (06:37)
[2018-07-21] MEDS ORDERED: PROPOFOL INJ 200 MG/20 ML VIAL IV ONE (07:02)
[2018-07-21] MEDS ORDERED: MEPERIDINE HCL/PF INJ 25 MG/1 ML DISP.SYRIN IV PRN (07:43)
[2018-07-21] MEDS ORDERED: DIPHENHYDRAMINE HCL 50 MG/ML VIAL IV PRN (07:43)
[2018-07-21] MEDS ORDERED: PROMETHAZINE HCL INJ 25 MG/1 ML VIAL IV PRN ×2 (07:43)
[2018-07-21] MEDS ORDERED: FENTANYL CITRATE INJ/PF 100 MCG/2 ML AMPUL IV PRN ×3 (07:43)
--- NOTE | 2018-07-21 08:17 | Discharge Summary ---
Discharge Summary (SDC) - Discharge Final Diagnosis: History of diverticulitis, unwanted colostomy, diverticulosis. Date of Surgery: 07/21/18 Discharge Date: 07/21/18 Condition: Stable Treatment or Instructions: Discharge home. Diet: Colonoscopy diet (patient has this information). Activity: Nonstrenuous. Follow-up for surgery on Friday. Referrals: FRANCIA FARRIS NP [Primary Care Provider] - Discharge Diet: Other (Comments) - Colonoscopy diet Respiratory Treatments at Home: Deep Breathing/Coughing, Incentive Spirometer Discharge Activity: Balance Activity w/Rest Home Care Assistance: None Needed Report the Following to Your Physician Immediately: Shortness of Breath, Nausea, Vomiting, Increase in Pain, Fever over 101 Degrees, Unusual Bleeding, Redness
--- NOTE | 2018-07-21 08:23 | Operative Report ---
Nonrecallable Operative Report DATE OF SURGERY: 07/21/18 PREOPERATIVE DIAGNOSIS: Unwanted colostomy. History of diverticulitis. POSTOPERATIVE DIAGNOSIS: 1. The same. 2. Diverticulosis OPERATION: Colonoscopy through stoma and rectum. SURGEON: ERLINDA JUAREZ ANESTHESIA: LMAC TISSUE REMOVED OR ALTERED: None COMPLICATIONS: None apparent ESTIMATED BLOOD LOSS: None PROCEDURE: Procedure in detail: After informed consent was obtained, the patient was brought to the operating room and laid in the supine position. The colonoscope was inserted into the left lower quadrant colostomy. The scope was pushed up the sigmoid and descending colon, across the transverse colon, down the ascending colon, and into the cecum. The ileocecal valve and appendiceal orifice were identified. The scope was then withdrawn, circumferentially noting the mucosa. The prep was fair. Multiple washings and suctioning were required in order to visualize the entirety of the mucosa. This was successful. The scope was withdrawn past the ascending colon, transverse colon, descending colon, sigmoid colon, and out of the colostomy site. There were scattered diverticulosis found throughout the descending and sigmoid colon, without signs of diverticulitis. Once the endoscope was removed from the colostomy site, attention was turned to evaluation of the rectal stump. The colonoscope was inserted into the rectum. There was mucus present in the rectum. The scope was pushed up the rectum and into the sigmoid colon. Approximately 15 cm of sigmoid and rectum were left in situ. There was mild colitis of disuse present. The staple line was easily identified. The scope was then withdrawn. No large polyps or areas consistent with malignancy were identified. The scope was removed from the rectum, and the procedure was concluded. All sponge, instrument, and needle counts were correct x2. Condition: Stable.
[2018-07-21 09:22] VITALS: BP 132/70
== END 2018-07-21 09:10 | disposition home or self-care (01) ==
LOC: OROUT 05:33
PROVIDERS: ATTEND Surgery
DX: K57.30 Diverticulosis of large intestine without perforation or abscess without bleeding (principal); Z93.3 Colostomy status; I10 Essential (primary) hypertension; F17.210 Nicotine dependence, cigarettes, uncomplicated; Z79.899 Other long term (current) drug therapy; Z01.818 Encounter for other preprocedural examination
CPT/HCPCS: 45378; 93005; 36415; 85027; 80048; 71046; 93010; J2704; 811

== ENCOUNTER 2018-07-24 05:48 | Inpatient (IN) | payer OTHER ==
[~2018-07-24 05:48] MED LIST: CEFOXITIN SODIUM 2 GM in DEXTROSE 5%-WATER 100 ML IV PRN; IBUPROFEN 800 MG in NORMAL SALINE 250 ML IV PRN; LACTATED RINGERS 1000 ML IV PRN; LIDOCAINE 0.5% INJ-PF (5 MG/ML) 50 ML SDV SUBCUT PRN
[2018-07-24] MEDS ORDERED: GLUCAGON,HUMAN RECOMB 1 MG INJ ONE (08:00)
[2018-07-24] MEDS ORDERED: BUPIVACAINE HCL 0.25 % INJ/PF (2.5 MG/1 ML) 30 ML VIAL ONE (08:00)
[2018-07-24] MEDS ORDERED: ALBUTEROL SULFATE 0.083% NEB 2.5 MG/3 ML AMPUL NEB ONE (08:56)
[2018-07-24] MEDS ORDERED: PHENYLEPHRINE HCL INJ/PF 10 MG/1 ML SDV ONE (10:11)
[2018-07-24] MEDS ORDERED: SUCCINYLCHOLINE CHLORIDE INJ 200 MG/10 ML VIAL ONE (10:11)
[2018-07-24] MEDS ORDERED: ROCURONIUM BROMIDE INJ 50 MG/5 ML VIAL IV ONE (10:11)
[2018-07-24] MEDS ORDERED: DEXAMETHASONE SOD PHOSPHATE INJ 4 MG/1 ML VIAL ONE (10:20)
[2018-07-24] MEDS ORDERED: MIDAZOLAM 2 MG/2 ML INJ ONE ×2 (10:20→17:38)
[2018-07-24] MEDS ORDERED: ONDANSETRON HCL INJ/PF 4 MG/2 ML SDV ONE (10:20)
[2018-07-24] MEDS ORDERED: FENTANYL CITRATE INJ/PF 100 MCG/2 ML AMPUL ONE ×2 (10:20→17:38)
[2018-07-24] MEDS ORDERED: EPHEDRINE SULFATE INJ 50 MG/1 ML AMPULE ONE ×2 (10:21→15:07)
[2018-07-24] MEDS ORDERED: HYDROMORPHONE HCL INJ/PF 2 MG/ML AMPULE ONE (10:21)
[2018-07-24] MEDS ORDERED: PROPOFOL INJ 200 MG/20 ML VIAL IV ONE (10:21)
[2018-07-24] MEDS ORDERED: ACETAMINOPHEN 0 MG/0 ML RTUPB IV ONE (10:21)
[2018-07-24] MEDS ORDERED: FENTANYL CITRATE INJ/PF 100 MCG/2 ML AMPUL IV PRN ×3 (11:00)
[2018-07-24] MEDS ORDERED: PROMETHAZINE HCL INJ 25 MG/1 ML VIAL IV PRN ×2 (11:00)
[2018-07-24] MEDS ORDERED: DIPHENHYDRAMINE HCL 50 MG/ML VIAL IV PRN (11:00)
[2018-07-24] MEDS ORDERED: MORPHINE SULFATE 10 MG/ML INJ IV PRN (11:00)
[2018-07-24] MEDS ORDERED: MEPERIDINE HCL/PF INJ 25 MG/1 ML DISP.SYRIN IV PRN (11:00)
[2018-07-24 14:37] LABS: HEMATOCRIT 33.2 % (36.0-47.0); MEAN CORPUSCULAR HEMOGLOBIN 27.8 pg (27.0-33.4); MEAN CORPUSCULAR HGB CONC 33.1 g/dL (32.0-36.0); MEAN CORPUSCULAR VOLUME 84 fl (80-97); PLATELET COUNT 259 10^3/uL (150-450); RED BLOOD COUNT 3.95 10^6/uL (3.72-5.28); RED CELL DISTRIBUTION WIDTH 16.9 % (11.5-14.0); WHITE BLOOD COUNT 16.2 10^3/uL (4.0-10.5)
[2018-07-24] MEDS ORDERED: SUGAMMADEX SODIUM 200 MG/2 ML SDV IV ONE (15:07)
[2018-07-24 16:31] LABS: HEMATOCRIT 28.9 % (36.0-47.0); HEMOGLOBIN 9.7 g/dL (12.0-15.5); MEAN CORPUSCULAR HEMOGLOBIN 28.6 pg (27.0-33.4); MEAN CORPUSCULAR HGB CONC 33.5 g/dL (32.0-36.0); MEAN CORPUSCULAR VOLUME 85 fl (80-97); PLATELET COUNT 220 10^3/uL (150-450); RED BLOOD COUNT 3.38 10^6/uL (3.72-5.28); RED CELL DISTRIBUTION WIDTH 16.5 % (11.5-14.0); WHITE BLOOD COUNT 12.4 10^3/uL (4.0-10.5)
[2018-07-24] MEDS ORDERED: GLUCAGON,HUMAN RECOMB 1 MG INJ SUBCUT PRN (17:41)
[2018-07-24] MEDS ORDERED: DEXTROSE 50%-WATER 25 GM/50 ML DISP.SYRIN IV PRN ×2 (17:41)
[2018-07-24] MEDS ORDERED: DEXTROSE 40% GEL 15 GM TUBE PO PRN ×2 (17:41)
[2018-07-24] MEDS ORDERED: MIDAZOLAM HCL 50 MG/100 ML RTUINJ ONE (17:58)
[2018-07-24] MEDS ORDERED: FUROSEMIDE INJ/PF 40 MG/4 ML SDV ONE (18:11)
--- NOTE | 2018-07-24 18:40 | RADIOLOGY REPORT (SQ) ---
EXAM DESCRIPTION: CHEST SINGLE VIEW COMPLETED DATE/TIME: 07/24/2018 6:20 pm REASON FOR STUDY: intubation COMPARISON: 07/14/2018 EXAM PARAMETERS: NUMBER OF VIEWS: One view. TECHNIQUE: Single frontal radiographic view of the chest acquired. RADIATION DOSE: NA LIMITATIONS: None. FINDINGS: LUNGS AND PLEURA: No opacities, masses or pneumothorax. No pleural effusion. MEDIASTINUM AND HILAR STRUCTURES: No masses. Contour normal. HEART AND VASCULAR STRUCTURES: Heart normal in size. Normal vasculature. BONES: No acute findings. HARDWARE: An endotracheal tube is present. The tip is 4 cm above the allen. OTHER: No other significant finding. IMPRESSION: Tube placement as described. No acute pulmonary findings. TECHNICAL DOCUMENTATION: JOB ID: [id number] [employer]- All Rights Reserved Reading location - IP/workstation name: [email or web address]
[2018-07-24 18:43] LABS: HEMATOCRIT 32.7 % (36.0-47.0); HEMOGLOBIN 11.2 g/dL (12.0-15.5); MEAN CORPUSCULAR HEMOGLOBIN 28.5 pg (27.0-33.4); MEAN CORPUSCULAR HGB CONC 34.2 g/dL (32.0-36.0); MEAN CORPUSCULAR VOLUME 83 fl (80-97); PLATELET COUNT 172 10^3/uL (150-450); RED BLOOD COUNT 3.92 10^6/uL (3.72-5.28); RED CELL DISTRIBUTION WIDTH 16.4 % (11.5-14.0); WHITE BLOOD COUNT 9.6 10^3/uL (4.0-10.5)
[2018-07-24 18:53] LABS: BLOOD UREA NITROGEN 10 mg/dL (7-20); CALCIUM 7.9 mg/dL (8.4-10.2); GLUCOSE 182 mg/dL (75-110); POTASSIUM 4.3 mmol/L (3.6-5.0)
[2018-07-24 18:59] LABS: ANION GAP 3 (5-19); CARBON DIOXIDE 22 mmol/L (22-30); CHLORIDE 113 mmol/L (98-107); SODIUM 138.4 mmol/L (137-145)
[2018-07-24] MEDS: FENTANYL CITRATE/PF 600 MCG/60 ML BAG IV PRN (19:37)
[2018-07-24] MEDS: MIDAZOLAM 2 MG/2 ML INJ IV PRN ×2 (19:38→21:56)
[2018-07-24] MEDS: CEFOXITIN SODIUM 2 GM in DEXTROSE 5%-WATER 100 ML IV SCH ×2 (20:33→22:48)
[2018-07-24] MEDS: ACETAMINOPHEN 1,000 MG/100 ML RTUPB IV SCH (21:56)
[2018-07-24] MEDS: FAMOTIDINE INJ/PF 20 MG/2 ML SDV IV SCH (21:56)
[2018-07-25] MEDS: FENTANYL CITRATE/PF 600 MCG/60 ML BAG IV PRN ×2 (00:06→05:02)
[2018-07-25] MEDS: MIDAZOLAM 2 MG/2 ML INJ IV PRN ×2 (00:07→02:47)
[2018-07-25] MEDS: DEXTROSE 5%-LACTATED RINGERS 1,000 ML IV PRN ×3 (00:14→20:14)
[2018-07-25] MEDS ORDERED: NORMAL SALINE 1000 ML 1,000 ML IV ONE ×2 (04:30→07:00)
[2018-07-25] MEDS: ACETAMINOPHEN 1,000 MG/100 ML RTUPB IV SCH ×3 (05:03→22:05)
[2018-07-25 05:33] LABS: ABSOLUTE LYMPHOCYTES (AUTO) 1.1 10^3/uL (0.5-4.7); ABSOLUTE MONOCYTES (AUTO) 1.1 10^3/uL (0.1-1.4); HEMATOCRIT 25.3 % (36.0-47.0); LYMPHOCYTES % (AUTO) 12.2 % (13-45); MEAN CORPUSCULAR HEMOGLOBIN 28.2 pg (27.0-33.4); MEAN CORPUSCULAR VOLUME 83 fl (80-97); MONOCYTES % (AUTO) 11.4 % (3-13); PLATELET COUNT 162 10^3/uL (150-450); RED BLOOD COUNT 3.05 10^6/uL (3.72-5.28); RED CELL DISTRIBUTION WIDTH 16.5 % (11.5-14.0); SEGMENTED NEUTROPHILS % (AUTO) 76.4 % (42-78); TOTAL CELLS COUNTED % (AUTO) 100 %; WHITE BLOOD COUNT 9.2 10^3/uL (4.0-10.5)
[2018-07-25 05:35] LABS: HEMOGLOBIN 8.6 g/dL (12.0-15.5)
[2018-07-25 05:48] LABS: ALANINE AMINOTRANSFERASE 27 U/L (9-52); ALBUMIN 1.8 g/dL (3.5-5.0); ALKALINE PHOSPHATASE 38 U/L (38-126); ASPARTATE AMINO TRANSFERASE 25 U/L (14-36); BILIRUBIN,DIRECT 0.2 mg/dL (0.0-0.4); BILIRUBIN,TOTAL 0.7 mg/dL (0.2-1.3); BLOOD UREA NITROGEN 11 mg/dL (7-20); CALCIUM 7.5 mg/dL (8.4-10.2); CHLORIDE 111 mmol/L (98-107); GLUCOSE 118 mg/dL (75-110); POTASSIUM 4.1 mmol/L (3.6-5.0); TOTAL PROTEIN 3.5 g/dL (6.3-8.2)
[2018-07-25 05:53] LABS: CARBON DIOXIDE 23 mmol/L (22-30); SODIUM 137.4 mmol/L (137-145)
[2018-07-25 05:54] LABS: ANION GAP 3 (5-19)
[2018-07-25] MEDS: FAMOTIDINE INJ/PF 20 MG/2 ML SDV IV SCH ×2 (09:15→22:04)
[2018-07-25] MEDS: HYDROMORPHONE HCL INJ/PF 2 MG/ML AMPULE IV PRN ×3 (11:45→20:13)
--- NOTE | 2018-07-25 12:24 | PDOC PROGRESS REPORT ---
Subjective Progress Note for:: 07/25/18 Reason For Visit: Z93.3 COLOSTOMY STATUS Physical Exam Vital Signs: Temp Pulse Resp BP Pulse Ox 97.8 F 90 17 92/43 L 100 07/25/18 10:00 07/25/18 10:00 07/25/18 10:00 07/25/18 10:00 07/25/18 10:00 Intake & Output 07/24/18 07/25/18 07/26/18 06:59 06:59 06:59 Intake Total 4884 2021 Output Total 2425 350 Balance 2459 1671 Weight 86.1 kg Results Laboratory Results: 07/25/18 05:23 07/25/18 05:23 07/24/18 07/24/18 07/24/18 09:11 13:50 14:27 WBC Cancelled 16.2 H RBC Cancelled 3.95 Hgb Cancelled 11.0 L Hct Cancelled 33.2 L MCV Cancelled 84 MCH Cancelled 27.8 MCHC Cancelled 33.1 RDW Cancelled 16.9 H Plt Count Cancelled 259 Seg Neutrophils % Lymphocytes % Monocytes % Eosinophils % Basophils % Absolute Neutrophils Absolute Lymphocytes Absolute Monocytes Absolute Eosinophils Absolute Basophils Sodium Potassium Chloride Carbon Dioxide Anion Gap BUN Creatinine Est GFR ( Amer) Est GFR (Non-Af Amer) Glucose Calcium Total Bilirubin AST ALT Alkaline Phosphatase Total Protein Albumin Blood Type A POSITIVE Antibody Screen NEGATIVE 07/24/18 07/24/18 07/24/18 16:25 18:20 18:20 WBC 12.4 H 9.6 RBC 3.38 L 3.92 Hgb 9.7 L 11.2 L Hct 28.9 L 32.7 L MCV 85 83 MCH 28.6 28.5 MCHC 33.5 34.2 RDW 16.5 H 16.4 H Plt Count 220 172 Seg Neutrophils % Lymphocytes % Monocytes % Eosinophils % Basophils % Absolute Neutrophils Absolute Lymphocytes Absolute Monocytes Absolute Eosinophils Absolute Basophils Sodium 138.4 Potassium 4.3 Chloride 113 H Carbon Dioxide 22 Anion Gap 3 L BUN 10 Creatinine 0.68 Est GFR ( Amer) > 60 Est GFR (Non-Af Amer) > 60 Glucose 182 H Calcium 7.9 L Total Bilirubin AST ALT Alkaline Phosphatase Total Protein Albumin Blood Type Antibody Screen 07/25/18 07/25/18 05:23 05:23 WBC 9.2 RBC 3.05 L Hgb 8.6 L D Hct 25.3 L MCV 83 MCH 28.2 MCHC 34.0 RDW 16.5 H Plt Count 162 Seg Neutrophils % 76.4 Lymphocytes % 12.2 L Monocytes % 11.4 Eosinophils % 0.0 Basophils % 0.0 Absolute Neutrophils 7.0 Absolute Lymphocytes 1.1 Absolute Monocytes 1.1 Absolute Eosinophils 0.0 Absolute Basophils 0.0 Sodium 137.4 Potassium 4.1 Chloride 111 H Carbon Dioxide 23 Anion Gap 3 L BUN 11 Creatinine 0.60 Est GFR ( Amer) > 60 Est GFR (Non-Af Amer) > 60 Glucose 118 H Calcium 7.5 L Total Bilirubin 0.7 AST 25 ALT 27 Alkaline Phosphatase 38 Total Protein 3.5 L Albumin 1.8 L Blood Type Antibody Screen Impressions: Chest X-Ray 07/24/18 17:45 IMPRESSION: Tube placement as described. No acute pulmonary findings. Assessment & Plan - Plan Summary Plan Summary: This is a 58-year-old female status post colostomy reversal. She was left intubated yesterday due to significant blood loss at the time of surgery and a long/protracted operation. The patient appears to be doing reasonably well this morning. Her blood pressure was marginal, and 2 L of normal saline were given. The patient responded appropriately to fluid resuscitation. Patient is awake and alert on the ventilator this morning. Her tidal volumes are greater than 1000 cc. Her leak test is normal and her NIF is favorable. Plan for extubation today to nasal cannula. Ice chips and popsicles are okay. Discontinue fentanyl drip, and initiate Dilaudid IV as needed. Add Toradol. Anemic, hemoglobin today at 8.6. Currently patient is stable. Will monitor hemoglobin levels. Patient may require transfusion if levels continue to trend downward. Hold Lovenox for now due to recent bleeding during surgery. Teds and SCDs for DVT prophylaxis. Continue Gordon today due to immobility. Awaiting bowel function.
[2018-07-25] MEDS: KETOROLAC TROMETHAMINE INJ/PF 30 MG/1 ML SDV IV SCH ×2 (13:11→22:04)
[2018-07-26 03:55] LABS: ABSOLUTE EOSINOPHILS # (AUTO) 0.1 10^3/uL (0.0-0.6); ABSOLUTE MONOCYTES (AUTO) 0.7 10^3/uL (0.1-1.4); ABSOLUTE NEUT (AUTO) 6.2 10^3/uL (1.7-8.2); BASOPHILS % (AUTO) 0.2 % (0-2); HEMATOCRIT 22.5 % (36.0-47.0); LYMPHOCYTES % (AUTO) 12.4 % (13-45); MEAN CORPUSCULAR HEMOGLOBIN 28.5 pg (27.0-33.4); MEAN CORPUSCULAR HGB CONC 33.9 g/dL (32.0-36.0); MEAN CORPUSCULAR VOLUME 84 fl (80-97); MONOCYTES % (AUTO) 9.3 % (3-13); PLATELET COUNT 151 10^3/uL (150-450); RED BLOOD COUNT 2.68 10^6/uL (3.72-5.28); RED CELL DISTRIBUTION WIDTH 17.1 % (11.5-14.0); SEGMENTED NEUTROPHILS % (AUTO) 77.1 % (42-78); TOTAL CELLS COUNTED % (AUTO) 100 %
[2018-07-26] MEDS: HYDROMORPHONE HCL INJ/PF 2 MG/ML AMPULE IV PRN ×4 (03:56→20:45)
[2018-07-26 03:58] LABS: HEMOGLOBIN 7.6 g/dL (12.0-15.5)
[2018-07-26 04:00] LABS: BLOOD UREA NITROGEN 6 mg/dL (7-20); CALCIUM 8.3 mg/dL (8.4-10.2); CARBON DIOXIDE 25 mmol/L (22-30); CHLORIDE 113 mmol/L (98-107); GLUCOSE 103 mg/dL (75-110); POTASSIUM 3.7 mmol/L (3.6-5.0); SODIUM 137.4 mmol/L (137-145)
[2018-07-26 04:11] LABS: ANION GAP -1 (5-19)
[2018-07-26] MEDS ORDERED: FUROSEMIDE INJ/PF 20 MG/2 ML SDV IV PRN (04:44)
[2018-07-26] MEDS: KETOROLAC TROMETHAMINE INJ/PF 30 MG/1 ML SDV IV SCH ×3 (05:47→21:32)
[2018-07-26] MEDS: ACETAMINOPHEN 1,000 MG/100 ML RTUPB IV SCH ×3 (05:48→21:31)
[2018-07-26] MEDS: FAMOTIDINE INJ/PF 20 MG/2 ML SDV IV SCH ×2 (10:03→21:31)
--- NOTE | 2018-07-26 11:12 | PDOC PROGRESS REPORT ---
Subjective Progress Note for:: 07/26/18 Reason For Visit: Z93.3 COLOSTOMY STATUS Physical Exam Vital Signs: Temp Pulse Resp BP Pulse Ox 98.8 F 94 18 122/56 L 98 07/26/18 10:00 07/26/18 10:00 07/26/18 10:00 07/26/18 10:00 07/26/18 10:00 Intake & Output 07/25/18 07/26/18 07/27/18 06:59 06:59 06:59 Intake Total 4884 3321 350 Output Total 2425 1755 275 Balance 2459 1566 75 Weight 86.1 kg 91.3 kg Results Laboratory Results: 07/26/18 03:29 07/26/18 03:29 07/24/18 07/26/18 07/26/18 09:11 03:29 03:29 WBC 8.0 RBC 2.68 L Hgb 7.6 L Hct 22.5 L MCV 84 MCH 28.5 MCHC 33.9 RDW 17.1 H Plt Count 151 Seg Neutrophils % 77.1 Lymphocytes % 12.4 L Monocytes % 9.3 Eosinophils % 1.0 Basophils % 0.2 Absolute Neutrophils 6.2 Absolute Lymphocytes 1.0 Absolute Monocytes 0.7 Absolute Eosinophils 0.1 Absolute Basophils 0.0 Sodium 137.4 Potassium 3.7 Chloride 113 H Carbon Dioxide 25 Anion Gap -1 L BUN 6 L Creatinine 0.51 L Est GFR ( Amer) > 60 Est GFR (Non-Af Amer) > 60 Glucose 103 Calcium 8.3 L Blood Type A POSITIVE Antibody Screen NEGATIVE Impressions: Chest X-Ray 07/24/18 17:45 IMPRESSION: Tube placement as described. No acute pulmonary findings. Assessment & Plan - Diagnosis (1) Colostomy present Is this a current diagnosis for this admission?: Yes (2) History of diverticulitis Is this a current diagnosis for this admission?: Yes - Plan Summary Plan Summary: This is a 58-year-old female status post colostomy reversal. She reports feeling somewhat better today. Her pain is relatively well controlled. She reports passing a small amount of flatus this morning. She denies nausea or vomiting. Her hemoglobin is lower again today. I will transfuse 1 more unit of PRBCs. I will stop her IV fluids. I will add Lasix, to be given after the PRBCs. Patient's pulmonary toilet is poor, only reaching 750 cc. Aggressive pulmonary toilet/out of bed to chair. Maintain Gordon catheter today due to immobility and diuresis. Start clear liquids. Start dressing changes for left lower quadrant wound. Repeat labs tomorrow.
[2018-07-26 20:13] LABS: HEMATOCRIT 28.1 % (36.0-47.0); HEMOGLOBIN 9.6 g/dL (12.0-15.5); MEAN CORPUSCULAR HEMOGLOBIN 27.7 pg (27.0-33.4); MEAN CORPUSCULAR HGB CONC 34.1 g/dL (32.0-36.0); MEAN CORPUSCULAR VOLUME 81 fl (80-97); PLATELET COUNT 177 10^3/uL (150-450); RED BLOOD COUNT 3.47 10^6/uL (3.72-5.28); RED CELL DISTRIBUTION WIDTH 19.4 % (11.5-14.0); WHITE BLOOD COUNT 9.7 10^3/uL (4.0-10.5)
[2018-07-27 03:56] LABS: ABSOLUTE EOSINOPHILS # (AUTO) 0.2 10^3/uL (0.0-0.6); ABSOLUTE LYMPHOCYTES (AUTO) 1.1 10^3/uL (0.5-4.7); ABSOLUTE MONOCYTES (AUTO) 0.7 10^3/uL (0.1-1.4); ABSOLUTE NEUT (AUTO) 6.4 10^3/uL (1.7-8.2); BASOPHILS % (AUTO) 0.2 % (0-2); EOSINOPHILS % (AUTO) 1.9 % (0-6); HEMATOCRIT 25.2 % (36.0-47.0); HEMOGLOBIN 8.5 g/dL (12.0-15.5); MEAN CORPUSCULAR HEMOGLOBIN 27.4 pg (27.0-33.4); MEAN CORPUSCULAR HGB CONC 33.5 g/dL (32.0-36.0); MEAN CORPUSCULAR VOLUME 82 fl (80-97); MONOCYTES % (AUTO) 8.8 % (3-13); PLATELET COUNT 164 10^3/uL (150-450); RED BLOOD COUNT 3.08 10^6/uL (3.72-5.28); RED CELL DISTRIBUTION WIDTH 18.5 % (11.5-14.0); SEGMENTED NEUTROPHILS % (AUTO) 76.1 % (42-78); TOTAL CELLS COUNTED % (AUTO) 100 %; WHITE BLOOD COUNT 8.4 10^3/uL (4.0-10.5)
[2018-07-27 04:14] LABS: BLOOD UREA NITROGEN 6 mg/dL (7-20); CALCIUM 8.3 mg/dL (8.4-10.2); GLUCOSE 80 mg/dL (75-110); POTASSIUM 3.3 mmol/L (3.6-5.0)
[2018-07-27 04:20] LABS: CARBON DIOXIDE 29 mmol/L (22-30); CHLORIDE 106 mmol/L (98-107); SODIUM 138.8 mmol/L (137-145)
[2018-07-27 04:26] LABS: ANION GAP 4 (5-19)
[2018-07-27] MEDS: KETOROLAC TROMETHAMINE INJ/PF 30 MG/1 ML SDV IV SCH ×3 (05:41→21:50)
[2018-07-27] MEDS: ACETAMINOPHEN 1,000 MG/100 ML RTUPB IV SCH ×3 (05:42→21:50)
[2018-07-27] MEDS: HYDROMORPHONE HCL INJ/PF 2 MG/ML AMPULE IV PRN ×2 (09:18→21:49)
[2018-07-27] MEDS: FAMOTIDINE INJ/PF 20 MG/2 ML SDV IV SCH ×2 (09:48→21:49)
--- NOTE | 2018-07-27 12:13 | PDOC PROGRESS REPORT ---
Subjective Progress Note for:: 07/27/18 Reason For Visit: Z93.3 COLOSTOMY STATUS Physical Exam Vital Signs: Temp Pulse Resp BP Pulse Ox 98.4 F 116 H 20 134/59 H 99 07/27/18 08:00 07/27/18 08:00 07/27/18 09:27 07/27/18 11:27 07/27/18 11:27 Intake & Output 07/26/18 07/27/18 07/28/18 06:59 06:59 06:59 Intake Total 3321 950 Output Total 1755 2585 400 Balance 1566 -1635 -400 Weight 91.3 kg 88.6 kg Results Laboratory Results: 07/27/18 03:50 07/27/18 03:50 07/26/18 07/27/18 07/27/18 20:07 03:50 03:50 WBC 9.7 8.4 RBC 3.47 L 3.08 L Hgb 9.6 L 8.5 L Hct 28.1 L 25.2 L MCV 81 82 MCH 27.7 27.4 MCHC 34.1 33.5 RDW 19.4 H 18.5 H Plt Count 177 164 Seg Neutrophils % 76.1 Lymphocytes % 13.0 Monocytes % 8.8 Eosinophils % 1.9 Basophils % 0.2 Absolute Neutrophils 6.4 Absolute Lymphocytes 1.1 Absolute Monocytes 0.7 Absolute Eosinophils 0.2 Absolute Basophils 0.0 Sodium 138.8 Potassium 3.3 L Chloride 106 Carbon Dioxide 29 Anion Gap 4 L BUN 6 L Creatinine 0.51 L Est GFR ( Amer) > 60 Est GFR (Non-Af Amer) > 60 Glucose 80 Calcium 8.3 L Impressions: Chest X-Ray 07/24/18 17:45 IMPRESSION: Tube placement as described. No acute pulmonary findings. Assessment & Plan - Diagnosis (1) Colostomy present Is this a current diagnosis for this admission?: Yes (2) History of diverticulitis Is this a current diagnosis for this admission?: Yes - Plan Summary Plan Summary: This is a 58-year-old female status post colostomy reversal. She is doing reasonably well today. She continues to tolerate liquids. She reports passing a minimal amount of flatus. She still has pain at her abdominal incision. Out of bed today. Aggressive pulmonary toilet. Discontinue Gordon catheter. Continue with clear liquids until patient passing large amounts of flatus, or having bowel movements. Hypokalemia: Replace
[2018-07-27] MEDS: POTASSI CL 20 MEQ/50 ML RIDER 20 MEQ/50 ML RTUPB IV SCH ×2 (12:44→14:07)
[2018-07-27] MEDS: ONDANSETRON HCL INJ/PF 4 MG/2 ML SDV IV PRN (21:57)
[2018-07-28 04:25] LABS: ABSOLUTE EOSINOPHILS # (AUTO) 0.1 10^3/uL (0.0-0.6); ABSOLUTE LYMPHOCYTES (AUTO) 0.9 10^3/uL (0.5-4.7); ABSOLUTE MONOCYTES (AUTO) 0.9 10^3/uL (0.1-1.4); ABSOLUTE NEUT (AUTO) 6.7 10^3/uL (1.7-8.2); BASOPHILS % (AUTO) 0.3 % (0-2); EOSINOPHILS % (AUTO) 1.2 % (0-6); HEMOGLOBIN 9.4 g/dL (12.0-15.5); LYMPHOCYTES % (AUTO) 10.5 % (13-45); MEAN CORPUSCULAR HEMOGLOBIN 27.3 pg (27.0-33.4); MEAN CORPUSCULAR HGB CONC 33.4 g/dL (32.0-36.0); MEAN CORPUSCULAR VOLUME 82 fl (80-97); MONOCYTES % (AUTO) 10.3 % (3-13); PLATELET COUNT 216 10^3/uL (150-450); RED BLOOD COUNT 3.43 10^6/uL (3.72-5.28); RED CELL DISTRIBUTION WIDTH 18.9 % (11.5-14.0); SEGMENTED NEUTROPHILS % (AUTO) 77.7 % (42-78); TOTAL CELLS COUNTED % (AUTO) 100 %; WHITE BLOOD COUNT 8.6 10^3/uL (4.0-10.5)
[2018-07-28 04:43] LABS: ANION GAP 6 (5-19); BLOOD UREA NITROGEN 4 mg/dL (7-20); CALCIUM 8.5 mg/dL (8.4-10.2); CARBON DIOXIDE 27 mmol/L (22-30); CHLORIDE 108 mmol/L (98-107); GLUCOSE 94 mg/dL (75-110); POTASSIUM 3.3 mmol/L (3.6-5.0); SODIUM 141.2 mmol/L (137-145)
[2018-07-28] MEDS: ACETAMINOPHEN 1,000 MG/100 ML RTUPB IV SCH ×2 (05:58→13:22)
[2018-07-28] MEDS: KETOROLAC TROMETHAMINE INJ/PF 30 MG/1 ML SDV IV SCH ×3 (05:58→22:14)
[2018-07-28] MEDS: ONDANSETRON HCL INJ/PF 4 MG/2 ML SDV IV PRN (06:43)
[2018-07-28] MEDS: FAMOTIDINE INJ/PF 20 MG/2 ML SDV IV SCH ×2 (09:01→22:14)
[2018-07-28] MEDS: POTASSIUM CHLORIDE 10 MEQ CAPSULE.ER PO SCH ×2 (09:01→13:20)
--- NOTE | 2018-07-28 09:14 | Operative Report ---
Nonrecallable Operative Report DATE OF SURGERY: 07/24/18 PREOPERATIVE DIAGNOSIS: 1. Unwanted colostomy. 2. History of diverticulitis. 3. Ventral incisional hernia. POSTOPERATIVE DIAGNOSIS: 1. Unwanted colostomy. 2. History of diverticulitis. 3. Ventral incisional hernia. 4. Dense intra-abdominal and pelvic adhesions. OPERATION: 1. Takedown of left lower quadrant colostomy. 2. Segmental resection of colon and rectum with stapled 29 mm EEA anastomosis. 3. Extensive lysis of adhesions (taking greater than 2 hours). 4. Segmental small bowel resection with [id number] stapled anastomosis. 5. Repair of midline ventral hernia with Vicryl mesh. 6. Repair of left lower quadrant colostomy defect with Dougherty Bio-A hernia mesh. 7. Flexible sigmoidoscopy. 8. Omental pedicle flap placed in the pelvis, around the colorectal anastomosis. SURGEON: ERLINDA JUAREZ 1ST BANANA CARRIER: SELINA SALEEM ANESTHESIA: GA TISSUE REMOVED OR ALTERED: 1. Segment of colon. 2. Segment of rectum. 3. Portion of small bowel. COMPLICATIONS: Dense inflammatory reaction in the pelvis requiring extensive lysis of adhesions, segmental small bowel resection, segmental rectal resection, and causing significant blood loss during surgery. ESTIMATED BLOOD LOSS: 2 L PROCEDURE: Drains/implants: 1. 15 [place]serratian round Jose Armando drain in the pelvis. 2. Vicryl mesh in midline to assist with midline ventral incisional hernia closure. 3. Dougherty Bio-A hernia mesh placed in the left lower quadrant to assist with closure of the colostomy defect. Procedure in detail: After informed consent was obtained, the patient was brought to the operating room and laid in the low lithotomy position. The left lower quadrant colostomy was closed using 0 silk suture in a running, locking fashion (baseball stitch). The area of the abdomen was prepped and draped in a normal sterile fashion. An incision was created within the bounds of the previous scar, resecting the scar. Dissection was carried through the subcutaneous tissue to the ventral, incisional, midline hernia. The hernia was opened and the abdomen was entered. The hernia sac was resected. There were dense adhesions to the anterior abdominal wall of the omentum, large bowel, and small bowel. After lysis of adhesions was performed, the abdomen was successfully entered. The incision was extended inferiorly to the level of the pubic symphysis. Once the abdomen was adequately opened, attention was turned to takedown of the left lower quadrant colostomy. An elliptical incision was created around the colostomy. Dissection was carried down to the fascia. The colon was freed from the fascia and reduced back into the abdominal cavity. Once this was completed, attention was turned to freeing of the small bowel and visualization of the rectum. There was a dense inflammatory reaction in the pelvis, involving the rectum and small bowel. With great difficulty, the small bowel was freed from the pelvis. Once the small bowel was freed, there was noted to be multiple serosal injuries in the ileum, necessitating a segmental small bowel resection. The small bowel was divided using a RUBY-75 stapling device proximal and distal to the area of injury. The small bowel was then removed from its mesentery using the LigaSure device. A [id number] stapled anastomosis was then created, again using the RUBY-75 stapling device. The resultant defect was closed with sutures in 2 layers. The inner layer was closed using 3-0 PDS suture in simple running fashion. The outer layer was closed using 3-0 Vicryl pop offs in Lembert fashion. Once this was completed, the small bowel was packed into bilateral upper quadrants in order to visualize the pelvis. Again, a dense inflammatory reaction remained in the pelvis. Visualization of the rectum was difficult. The uterus was retracted anteriorly. A mixture of sharp dissection, blunt dissection, and electrocautery was used to free the rectum. This was done slowly and carefully, so as not to injure the surrounding pelvic structures (ureters, bladder, vagina, pelvic veins). After much effort, the rectum was freed and elevated. The contour stapling device was then used to divide the thickened, nonviable portion of the upper rectum. Once this unusable portion of the rectum was removed, soft/healthy rectum remained. Next attention was turned to creation of the anastomosis. EEA sizers were used to evaluate the rectum. 25 and 29 EEA sizers passed easily into the rectum, up to the staple line. Once this was completed a 29 EEA stapler was chosen to create the anastomosis. The descending colon was then examined. It reached easily into the pelvis, without any tension. The colostomy was then divided using curved Leigh scissors. This portion of sigmoid colon was removed from its mesentery using the LigaSure device. The small portion of colon was then passed off the field. The descending colon was then evaluated. The 29 EEA anvil fit easily into the descending colon. The anvil was sewn into place using 2-0 Vicryl suture in pursestring fashion. Attention was then turned to insertion of the EEA stapler into the rectum. I inserted the EEA stapler into the rectum, passing it up the rectum, to the staple line. The spike was then deployed through the staple line. The anvil was attached to the stapler and closed. The stapler was then fired, according to instructional technology coach recommendations. The stapler was removed and examined on the back table. 2 complete, circumferential donuts of tissue were noted to be within the stapler. Attention was then turned to the flexible sigmoidoscopy. A bowel clamp was used to clamp the descending colon, above the anastomosis. The pelvis was filled with water. The flexible colonoscope was inserted into the rectum. Gas insufflation was used to distend the rectum. Air was found to escape through the anus. The anastomosis was visualized internally, and appeared intact. No air was found to leak through the anastomosis (into the abdominal cavity), confirming that it was air and watertight. The air was suctioned from the rectum, and the scope was removed. I then scrubbed back into the case. The anastomosis was inspected. The anastomosis appeared healthy, without tension. Due to the dense inflammation in the rectum, an omental pedicle flap was felt prudent. The omentum was freed from the transverse colon and mobilized along its blood supply. The omental pedicle was then placed into the pelvis, ar ound the anastomosis. A 15 [place]ian round Jose Armando drain was placed through the right lower quadrant abdominal wall and into the pelvis. The drain was sutured into place using 2-0 nylon suture. The abdomen was copiously irrigated and suctioned. Attention was then turned to closure of the left lower quadrant colostomy defect. 1 Prolene suture was used to close the fascia in longitudinal running fashion. Once this was completed, a Dougherty bio-a hernia mesh (9 x 15 cm) was chosen to cover and buttress the repair. It was sutured to the fascia using 0 Prolene trans-fascial mattress sutures. Once this was completed, attention was turned to closure of the midline. The ventral incisional hernia that was present superior to the umbilicus was inspected. It was felt that buttressing of the closure would be necessary to prevent separation. A Vicryl mesh was then placed into the abdominal cavity and sutured to the anterior abdominal wall with #1 Vicryl interrupted sutures. Next the midline fascia was closed using #1 double- stranded looped PDS suture in simple running fashion. The skin of the midline incision was closed with skin beatriz. The left lower quadrant colostomy site was partially closed with skin beatriz, and packed with Xeroform gauze. Dressings were then placed, and the procedure was concluded. All sponge, instrument, and needle counts were correct x2. Condition: Fair. Selian Saleem PA-C was scrubbed and present the entirety of the procedure. She assisted with all portions of the procedure including opening of the abdomen, lysis of adhesions, resection of the colon, resection of the rectum, resection of the small bowel, creation of the anastomoses, closure of the fascia, and closure of the skin.
[2018-07-28] MEDS ORDERED: HYDROCODONE/ACETAMINOPHEN 10-325 MG TABLET PO PRN (14:49)
--- NOTE | 2018-07-28 16:41 | PDOC PROGRESS REPORT ---
Subjective Progress Note for:: 07/28/18 Reason For Visit: Z93.3 COLOSTOMY STATUS Physical Exam Vital Signs: Temp Pulse Resp BP Pulse Ox 98.3 F 100 18 163/72 H 94 07/28/18 15:05 07/28/18 15:05 07/28/18 15:05 07/28/18 15:05 07/28/18 15:05 Intake & Output 07/27/18 07/28/18 07/29/18 06:59 06:59 06:59 Intake Total 950 385 250 Output Total 2585 986 60 Balance -1635 -601 190 Weight 88.6 kg 89.7 kg Results Laboratory Results: 07/28/18 04:15 07/28/18 04:15 07/27/18 07/28/18 07/28/18 20:50 04:15 04:15 WBC 8.6 RBC 3.43 L Hgb 9.4 L Hct 28.0 L MCV 82 MCH 27.3 MCHC 33.4 RDW 18.9 H Plt Count 216 Seg Neutrophils % 77.7 Lymphocytes % 10.5 L Monocytes % 10.3 Eosinophils % 1.2 Basophils % 0.3 Absolute Neutrophils 6.7 Absolute Lymphocytes 0.9 Absolute Monocytes 0.9 Absolute Eosinophils 0.1 Absolute Basophils 0.0 Sodium 141.2 Potassium 3.8 3.3 L Chloride 108 H Carbon Dioxide 27 Anion Gap 6 BUN 4 L Creatinine 0.48 L Est GFR ( Amer) > 60 Est GFR (Non-Af Amer) > 60 Glucose 94 Calcium 8.5 Magnesium 07/28/18 04:15 WBC RBC Hgb Hct MCV MCH MCHC RDW Plt Count Seg Neutrophils % Lymphocytes % Monocytes % Eosinophils % Basophils % Absolute Neutrophils Absolute Lymphocytes Absolute Monocytes Absolute Eosinophils Absolute Basophils Sodium Potassium Chloride Carbon Dioxide Anion Gap BUN Creatinine Est GFR ( Amer) Est GFR (Non-Af Amer) Glucose Calcium Magnesium 1.8 Impressions: Chest X-Ray 07/24/18 17:45 IMPRESSION: Tube placement as described. No acute pulmonary findings. Assessment & Plan - Diagnosis (1) Colostomy present Is this a current diagnosis for this admission?: Yes (2) History of diverticulitis Is this a current diagnosis for this admission?: Yes - Plan Summary Plan Summary: Is a 58-year-old female status post colostomy reversal. She is doing very well today. She is having bowel movements and tolerating regular diet. I will restart her home medications. I will start her on oral pain medications as well. Ambulate. Pulmonary toilet.
[2018-07-29 04:27] LABS: ANION GAP 6 (5-19); BLOOD UREA NITROGEN 5 mg/dL (7-20); CALCIUM 8.8 mg/dL (8.4-10.2); CARBON DIOXIDE 25 mmol/L (22-30); CHLORIDE 107 mmol/L (98-107); GLUCOSE 91 mg/dL (75-110); POTASSIUM 3.8 mmol/L (3.6-5.0); SODIUM 137.9 mmol/L (137-145)
[2018-07-29] MEDS: KETOROLAC TROMETHAMINE INJ/PF 30 MG/1 ML SDV IV SCH ×3 (05:18→21:24)
[2018-07-29] MEDS: ENOXAPARIN SODIUM INJ 40 MG/0.4 ML DISP.SYRIN SUBCUT SCH (09:49)
[2018-07-29] MEDS: FAMOTIDINE INJ/PF 20 MG/2 ML SDV IV SCH ×2 (09:49→21:25)
--- NOTE | 2018-07-29 16:11 | PDOC PROGRESS REPORT ---
Subjective Progress Note for:: 07/29/18 Reason For Visit: Z93.3 COLOSTOMY STATUS Physical Exam Vital Signs: Temp Pulse Resp BP Pulse Ox 99.5 F 102 H 18 174/76 H 96 07/29/18 15:49 07/29/18 15:49 07/29/18 15:49 07/29/18 15:49 07/29/18 15:49 Intake & Output 07/28/18 07/29/18 07/30/18 06:59 06:59 06:59 Intake Total 385 890 472 Output Total 986 160 60 Balance -601 730 412 Weight 89.7 kg 89.5 kg Results Laboratory Results: 07/28/18 04:15 07/29/18 03:25 07/29/18 03:25 Sodium 137.9 Potassium 3.8 Chloride 107 Carbon Dioxide 25 Anion Gap 6 BUN 5 L Creatinine 0.56 Est GFR ( Amer) > 60 Est GFR (Non-Af Amer) > 60 Glucose 91 Calcium 8.8 Impressions: Chest X-Ray 07/24/18 17:45 IMPRESSION: Tube placement as described. No acute pulmonary findings. Assessment & Plan - Diagnosis (1) Colostomy present Is this a current diagnosis for this admission?: Yes (2) History of diverticulitis Is this a current diagnosis for this admission?: Yes - Plan Summary Plan Summary: 58-year-old female status post colostomy reversal. She is doing well. She is tolerating a regular diet. She is having bowel movements. Her pain is controlled with oral pain medications. Continue with diet. Ambulate/pulmonary toilet. Continue with dressing changes. Possible discharge home tomorrow.
[2018-07-30 05:30] LABS: ABSOLUTE EOSINOPHILS # (AUTO) 0.1 10^3/uL (0.0-0.6); ABSOLUTE LYMPHOCYTES (AUTO) 0.7 10^3/uL (0.5-4.7); ABSOLUTE NEUT (AUTO) 4.2 10^3/uL (1.7-8.2); BASOPHILS % (AUTO) 0.3 % (0-2); EOSINOPHILS % (AUTO) 1.2 % (0-6); HEMATOCRIT 25.2 % (36.0-47.0); HEMOGLOBIN 8.5 g/dL (12.0-15.5); LYMPHOCYTES % (AUTO) 11.2 % (13-45); MEAN CORPUSCULAR HEMOGLOBIN 27.5 pg (27.0-33.4); MEAN CORPUSCULAR HGB CONC 33.5 g/dL (32.0-36.0); MEAN CORPUSCULAR VOLUME 82 fl (80-97); MONOCYTES % (AUTO) 16.1 % (3-13); PLATELET COUNT 244 10^3/uL (150-450); RED BLOOD COUNT 3.07 10^6/uL (3.72-5.28); RED CELL DISTRIBUTION WIDTH 18.6 % (11.5-14.0); SEGMENTED NEUTROPHILS % (AUTO) 71.2 % (42-78); TOTAL CELLS COUNTED % (AUTO) 100 %
[2018-07-30] MEDS: KETOROLAC TROMETHAMINE INJ/PF 30 MG/1 ML SDV IV SCH (05:59)
[2018-07-30 06:03] LABS: ANION GAP 8 (5-19); BLOOD UREA NITROGEN 5 mg/dL (7-20); CALCIUM 8.9 mg/dL (8.4-10.2); CARBON DIOXIDE 25 mmol/L (22-30); CHLORIDE 102 mmol/L (98-107); GLUCOSE 96 mg/dL (75-110); POTASSIUM 4.1 mmol/L (3.6-5.0); SODIUM 134.7 mmol/L (137-145)
[2018-07-30] MEDS: FAMOTIDINE INJ/PF 20 MG/2 ML SDV IV SCH ×2 (09:41→22:19)
[2018-07-30] MEDS: ENOXAPARIN SODIUM INJ 40 MG/0.4 ML DISP.SYRIN SUBCUT SCH (09:41)
--- NOTE | 2018-07-30 09:44 | RADIOLOGY REPORT (SQ) ---
EXAM DESCRIPTION: CHEST SINGLE VIEW COMPLETED DATE/TIME: 07/30/2018 8:55 am REASON FOR STUDY: exp wheezing COMPARISON: 07/24/2018 EXAM PARAMETERS: NUMBER OF VIEWS: One view. TECHNIQUE: Single frontal radiographic view of the chest acquired. RADIATION DOSE: NA LIMITATIONS: None. FINDINGS: LUNGS AND PLEURA: No opacities, masses or pneumothorax. No pleural effusion. MEDIASTINUM AND HILAR STRUCTURES: No masses. Contour normal. HEART AND VASCULAR STRUCTURES: Heart normal in size. Normal vasculature. BONES: No acute findings. HARDWARE: Interval removal of endotracheal tube. OTHER: No other significant finding. IMPRESSION: 1. Since the prior examination dated 07/24/2018, interval removal of endotracheal tube. 2. No acute pulmonary findings. TECHNICAL DOCUMENTATION: JOB ID: [id number] [employer]- All Rights Reserved Reading location - IP/workstation name: [email or web address]
--- NOTE | 2018-07-30 14:11 | PDOC PROGRESS REPORT ---
Subjective Progress Note for:: 07/30/18 Reason For Visit: Z93.3 COLOSTOMY STATUS Physical Exam Vital Signs: Temp Pulse Resp BP Pulse Ox 99.9 F 107 H 16 178/64 H 95 07/30/18 11:49 07/30/18 11:49 07/30/18 11:49 07/30/18 11:49 07/30/18 11:49 Intake & Output 07/29/18 07/30/18 07/31/18 06:59 06:59 06:59 Intake Total 890 772 Output Total 160 560 Balance 730 212 Weight 89.5 kg 90.6 kg Results Laboratory Results: 07/30/18 04:49 07/30/18 04:49 07/30/18 07/30/18 04:49 04:49 WBC 6.0 RBC 3.07 L Hgb 8.5 L Hct 25.2 L MCV 82 MCH 27.5 MCHC 33.5 RDW 18.6 H Plt Count 244 Seg Neutrophils % 71.2 Lymphocytes % 11.2 L Monocytes % 16.1 H Eosinophils % 1.2 Basophils % 0.3 Absolute Neutrophils 4.2 Absolute Lymphocytes 0.7 Absolute Monocytes 1.0 Absolute Eosinophils 0.1 Absolute Basophils 0.0 Sodium 134.7 L Potassium 4.1 Chloride 102 Carbon Dioxide 25 Anion Gap 8 BUN 5 L Creatinine 0.46 L Est GFR ( Amer) > 60 Est GFR (Non-Af Amer) > 60 Glucose 96 Calcium 8.9 Impressions: Chest X-Ray 07/30/18 06:00 IMPRESSION: 1. Since the prior examination dated 07/24/2018, interval removal of endotracheal tube. 2. No acute pulmonary findings. Assessment & Plan - Diagnosis (1) Colostomy present Is this a current diagnosis for this admission?: Yes (2) History of diverticulitis Is this a current diagnosis for this admission?: Yes - Plan Summary Plan Summary: Is a 58-year-old female status post colostomy reversal. She had fevers ov ernight, up to 101 F. Today her temperatures are 99. Her pulmonary toilet is improving. Her incentive spirometer was measured at 1250 today. Her abdominal incision appears clean, without any active erythema or purulence. I have reviewed her chest x-ray. There are no large infiltrates. The patient is tolerating a regular diet. She continues to pass flatus and have bowel movements. Her stool is more formed today. Her labs are essentially normal. Fever: Check urinalysis and culture. Encourage incentive spirometry and aggressive pulmonary toilet. Ambulate. Continue with supportive care.
[2018-07-30] MEDS ORDERED: ONDANSETRON HCL INJ/PF 4 MG/2 ML SDV IV PRN (15:30)
[2018-07-30 16:14] LABS: APPEARANCE,URINE CLEAR; BILIRUBIN,URINE NEGATIVE (NEGATIVE); COLOR,URINE YELLOW; GLUCOSE, URINE NEGATIVE (NEGATIVE); KETONES,URINE 20 mg/dL (NEGATIVE); LEUKOCYTE ESTERASE,URINE TRACE (NEGATIVE); NITRITE,URINE NEGATIVE (NEGATIVE); PROTEIN,URINE NEGATIVE (NEGATIVE); URINE SPECIFIC GRAVITY 1.009; UROBILINOGEN,URINE NEGATIVE mg/dL (<2.0)
[2018-07-30] MEDS: HYDROMORPHONE HCL INJ/PF 2 MG/ML AMPULE IV PRN (22:19)
[2018-07-30] MEDS: FLUTICASONE NASAL SPRAY 50 MCG/SPRY 120 SPRAY/16 GM NASL SCH (22:20)
[2018-07-31 08:46] LABS: ABSOLUTE LYMPHOCYTES (AUTO) 0.6 10^3/uL (0.5-4.7); ABSOLUTE NEUT (AUTO) 5.1 10^3/uL (1.7-8.2); BASOPHILS % (AUTO) 0.3 % (0-2); EOSINOPHILS % (AUTO) 0.4 % (0-6); HEMATOCRIT 24.8 % (36.0-47.0); HEMOGLOBIN 8.4 g/dL (12.0-15.5); MEAN CORPUSCULAR HEMOGLOBIN 27.4 pg (27.0-33.4); MEAN CORPUSCULAR HGB CONC 33.7 g/dL (32.0-36.0); MEAN CORPUSCULAR VOLUME 81 fl (80-97); MONOCYTES % (AUTO) 14.8 % (3-13); PLATELET COUNT 315 10^3/uL (150-450); RED BLOOD COUNT 3.06 10^6/uL (3.72-5.28); RED CELL DISTRIBUTION WIDTH 18.5 % (11.5-14.0); SEGMENTED NEUTROPHILS % (AUTO) 75.5 % (42-78); TOTAL CELLS COUNTED % (AUTO) 100 %; WHITE BLOOD COUNT 6.8 10^3/uL (4.0-10.5)
[2018-07-31 09:12] LABS: ALANINE AMINOTRANSFERASE 59 U/L (9-52); ALBUMIN 2.6 g/dL (3.5-5.0); ALKALINE PHOSPHATASE 92 U/L (38-126); ANION GAP 8 (5-19); ASPARTATE AMINO TRANSFERASE 75 U/L (14-36); BILIRUBIN,DIRECT 0.3 mg/dL (0.0-0.4); BILIRUBIN,TOTAL 0.4 mg/dL (0.2-1.3); BLOOD UREA NITROGEN 5 mg/dL (7-20); CALCIUM 8.6 mg/dL (8.4-10.2); CARBON DIOXIDE 28 mmol/L (22-30); CHLORIDE 99 mmol/L (98-107); GLUCOSE 111 mg/dL (75-110); POTASSIUM 3.8 mmol/L (3.6-5.0); SODIUM 135.2 mmol/L (137-145); TOTAL PROTEIN 4.9 g/dL (6.3-8.2)
[2018-07-31] MEDS: ENOXAPARIN SODIUM INJ 40 MG/0.4 ML DISP.SYRIN SUBCUT SCH (09:15)
[2018-07-31] MEDS: FAMOTIDINE INJ/PF 20 MG/2 ML SDV IV SCH ×2 (09:19→22:19)
[2018-07-31] MEDS: FLUTICASONE NASAL SPRAY 50 MCG/SPRY 120 SPRAY/16 GM NASL SCH ×2 (09:19→22:20)
[2018-07-31] MEDS ORDERED: (PENDING PHARMACY ID) (Fexofenadine Hcl [Allegra Allergy] 180 MG) PO SCH (10:00)
[2018-07-31] MEDS ORDERED: (PENDING PHARMACY ID) (Glucosamine Sulfate Dipot Chlr [Glucosamine] 1,000 MG) PO SCH (10:00)
[2018-07-31] MEDS ORDERED: (PENDING PHARMACY ID) (Lisinopril [Prinivil] 20 MG) PO SCH (10:00)
[2018-07-31] MEDS: LISINOPRIL 10 MG TABLET PO SCH (12:53)
[2018-07-31] MEDS: LORATADINE 10 MG TABLET PO SCH (12:54)
--- NOTE | 2018-07-31 13:18 | RADIOLOGY REPORT (SQ) ---
EXAM DESCRIPTION: CT ABD/PELVIS WITH IV ORAL COMPLETED DATE/TIME: 07/31/2018 12:33 pm REASON FOR STUDY: fevers s/p colostomy reversal, eval for leak Z93.3 COLOSTOMY STATUS COMPARISON: 02/19/2018 TECHNIQUE: CT scan of the abdomen and pelvis performed using helical scanning technique with dynamic intravenous contrast injection. No oral contrast. Images reviewed with lung, soft tissue, and bone windows. Reconstructed coronal and sagittal MPR images reviewed. Delayed images for evaluation of the urinary system also acquired. All images stored on PACS. All CT scanners at this facility use dose modulation, iterative reconstruction, and/or weight based d osing when appropriate to reduce radiation dose to as low as reasonably achievable (ALARA). [facility]: Dose Right [facility]: CareDose [facility]: Dose Right [facility]: Teradose 4D [facility]: HylioSoft CONTRAST TYPE AND DOSE: contrast/concentration: Isovue 350.00 mg/ml; Total Contrast Delivered: 100.0 ml; Total Saline Delivered: 72.0 ml RENAL FUNCTION: BUN 5, creatinine 0.46 RADIATION DOSE: CT Rad equipment meets quality standard of care and radiation dose reduction techniq ues were employed. CTDIvol: 11.2 - 13.0 mGy. DLP: 1944 mGy-cm.. LIMITATIONS: None. FINDINGS: LOWER CHEST: There are small pleural effusions new from prior study. There is bibasilar a telectasis. LIVER: There is a small amount of perihepatic fluid. No focal hepatic lesions. SPLEEN: Normal size. No focal lesions. PANCREAS: No masses. No significant calcifications. No adjacent inflammation or peripancreatic fluid collections. Pancreatic duct not dilated. GALLBLADDER: Surgically absent. ADRENAL GLANDS: No significant masses or asymmetry. RIGHT KIDNEY AND URETER: No solid masses. No significant calcifications. There is moderate right- sided hydronephrosis new from prior study. No definite stones. LEFT KIDNEY AND URETER: No solid masses. No significant calcifications. There is mild to moderate left-sided hydronephrosis. No definite stones. AORTA AND VESSELS: No aneurysm. No dissection. Renal arteries, SMA, celiac without stenosis. RETROPERITONEUM: No retroperitoneal adenopathy, hemorrhage or masses. BOWEL AND PERITONEAL CAVITY: Multiple drainage tubes are in place. There postsurgical changes in the anterior abdominal wall. There is a small amount inflammation and subcutaneous gas. No focal absce ss. There is thickening of a short segment of small bowel in the upper pelvis. This appears to repr esent terminal ileum. APPENDIX: Surgically absent. PELVIS: The bladder is distended. This probably accounts for the bilateral hydronephrosis. There is a small amount of free fluid the pelvis there is a small pocket of air in the right aspect of the pe lvis there is presacral fluid as well. There is a small right adnexal lesion most likely ovarian cys t which was noted on prior study done in January. ABDOMINAL WALL: Postsurgical changes. BONES: No significant or acute findings. OTHER: No other significant finding. IMPRESSION: 1. Thickening of the terminal ileum. 2. Small amount of free fluid in the abdomen and pelvis. No focal abscess. Drains catheters are in place. There are small pockets of fluid and small amounts of intraperitoneal air consistent with re cent surgery. 3. Markedly dilated bladder and bilateral hydronephrosis as described. 4. Small bilateral pleural effusions and associated atelectasis. 5. Postsurgical changes in the anterior abdominal wall with subcutaneous air arm and mild inflammati on. No focal fluid collections. TECHNICAL DOCUMENTATION: JOB ID: [id number] Quality ID # [id number]: Final reports with documentation of one or more dose reduction techniques (e.g., Au tomated exposure control, adjustment of the mA and/or kV according to patient size, use of iterative reconstruction technique) 2010 [employer]- All Rights Reserved Reading location - IP/workstation name: [email or web address]
[2018-07-31] MEDS: NITROFURANTOIN MONOHYD/M-CRYST 100 MG CAPSULE PO SCH (17:46)
[2018-07-31] MEDS: HYDROMORPHONE HCL INJ/PF 2 MG/ML AMPULE IV PRN (17:46)
[2018-08-01] MEDS: HYDROMORPHONE HCL INJ/PF 2 MG/ML AMPULE IV PRN (02:29)
--- NOTE | 2018-08-01 10:23 | PDOC DISCHARGE SUMMARY ---
General - Admit/Disc Date/PCP Admission Date/Primary Care Provider: 07/24/18 08:23 FRANCIA FARRIS NP Discharge Date: 08/01/18 - Discharge Diagnosis (1) Colostomy present Is this a current diagnosis for this admission?: Yes (2) History of diverticulitis Is this a current diagnosis for this admission?: Yes - Additional Information Resuscitation Status: Full Code Discharge Diet: As Tolerated Discharge Activity: No Lifting Over 10 Pounds Home Medications: Fexofenadine HCl [Suzi Allergy] 180 mg PO DAILY 02/20/18 Fluticasone Propionate [Flonase Nasal [place] 50 Mcg/[place] 16 gm] 1 spray NASL Q12 02/20/18 Lisinopril [Prinivil] 20 mg PO DAILY 02/20/18 Multivitamin [Daily Multiple Vitamin] 1 each PO DAILY 02/20/18 Fiber [Fiber Choice] 1 each PO DAILY 07/13/18 Glucosamine Sulfate Dipot Chlr [Glucosamine] 1,000 mg PO DAILY 07/13/18 History of Present Illness History of Present Illness: FLYNN NORRIS I is a 58 year old female admitted to the hospital for reversal of her colostomy. 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 The patient was taken to the operating room where a difficult surgery was performed. She underwent colostomy reversal, small bowel resection, and ventral hernia repair. The patient was taken to the ICU after surgery in stable condition. Hospital Course Hospital Course: The patient was transferred from the ICU several days after her surgery, as she recovered from her operation. The patient began passing flatus and having bowel movements. She began tolerating a diet. On approximately postop day 6 the patient began having fevers. Investigation of these fevers, the patient was found to have urinary retention and a likely urinary tract infection due to her retention. A Gordon catheter was placed, revealing 1600 cc of urine. Patient was started on Macrobid 100 mg p.o. twice daily. Her fevers subsided. By 08/01/2018 the patient was ambulating, tolerating a diet, her pain was controlled with oral pain medications, and her fevers were gone. At this time it was felt that she had reached maximal hospital benefit and was fit for discharge. Physical Exam Vital Signs: Temp Pulse Resp BP Pulse Ox 98.8 F 93 18 142/68 H 95 04/06/19 07:16 08/01/18 07:16 08/01/18 07:16 08/01/18 07:16 08/01/18 07:16 Intake & Output 07/31/18 08/01/18 08/02/18 06:59 06:59 06:59 Intake Total 440 1566 Output Total 2300 Balance 440 -734 Weight 88 kg 86.2 kg Results Laboratory Results: 07/31/18 08:27 07/31/18 08:27 07/30/18 15:43 Urine Color YELLOW Urine Appearance CLEAR Urine pH 8.0 Ur Specific [place] 1.009 Urine Protein NEGATIVE Urine Glucose (UA) NEGATIVE Urine Ketones 20 H Urine Blood NEGATIVE Urine Nitrite NEGATIVE Ur Leukocyte Esterase TRACE H Urine WBC (Auto) 1 Urine RBC (Auto) 1 Impressions: Chest X-Ray 07/30/18 06:00 IMPRESSION: 1. Since the prior examination dated 07/24/2018, interval removal of endotracheal tube. 2. No acute pulmonary findings. Abdomen/Pelvis CT 07/31/18 00:00 IMPRESSION: 1. Thickening of the terminal ileum. 2. Small amount of free fluid in the abdomen and pelvis. No focal abscess. Drains catheters are in place. There are small pockets of fluid and small amounts of intraperitoneal air consistent with recent surgery. 3. Markedly dilated bladder and bilateral hydronephrosis as described. 4. Small bilateral pleural effusions and associated atelectasis. 5. Postsurgical changes in the anterior abdominal wall with subcutaneous air arm and mild inflammation. No focal fluid collections. Qualifiers - * PATIENT BEING DISCHARGED WITH ANY OF THE FOLLOWING DIAGNOSIS: No Plan Discharge Plan: Discharge home. Diet as tolerated. Activity: No lifting greater than 10 pounds x 6 weeks after surgery. Follow-up with me in the office next week for Gordon catheter removal. [place] 10/325 mg p.o. every 6 hours as needed for pain. Dressing change to abdominal incisions twice daily. Time Spent: Less than 30 Minutes
[2018-08-01] MEDS: FLUTICASONE NASAL SPRAY 50 MCG/SPRY 120 SPRAY/16 GM NASL SCH (10:24)
[2018-08-01] MEDS: LORATADINE 10 MG TABLET PO SCH (10:24)
[2018-08-01] MEDS: LISINOPRIL 10 MG TABLET PO SCH (10:24)
[2018-08-01] MEDS: FAMOTIDINE INJ/PF 20 MG/2 ML SDV IV SCH (10:24)
[2018-08-01] MEDS: NITROFURANTOIN MONOHYD/M-CRYST 100 MG CAPSULE PO SCH (10:24)
[2018-08-01] MEDS: ENOXAPARIN SODIUM INJ 40 MG/0.4 ML DISP.SYRIN SUBCUT SCH (10:25)
[2018-08-01 12:21] VITALS: BP 176/71
== END 2018-08-01 13:35 | disposition home or self-care (01) | DRG 331 ==
LOC: INOR 08:23 → EDSTATUS 09:00 → ICU 17:56 → 4N 07-28 15:22
PROVIDERS: ADMIT Surgery; ATTEND Surgery
PROC: 30233L1 Transfusion of Nonautologous Fresh Plasma into Peripheral Vein, Percutaneous Approach (ICD-10-PCS; 2018-07-24)
PROC: 30233N1 Transfusion of Nonautologous Red Blood Cells into Peripheral Vein, Percutaneous Approach (ICD-10-PCS; 2018-07-24)
PROC: 5A1935Z Respiratory Ventilation, Less than 24 Consecutive Hours (ICD-10-PCS; 2018-07-24)
PROC: 0BH17EZ Insertion of Endotracheal Airway into Trachea, Via Natural or Artificial Opening (ICD-10-PCS; 2018-07-24)
PROC: 30233N1 Transfusion of Nonautologous Red Blood Cells into Peripheral Vein, Percutaneous Approach (ICD-10-PCS; 2018-07-26)
PROC: 0DQP0ZZ Repair Rectum, Open Approach (ICD-10-PCS; principal; 2018-07-28)
PROC: 0DB80ZZ Excision of Small Intestine, Open Approach (ICD-10-PCS; 2018-07-28)
PROC: 0DNE0ZZ Release Large Intestine, Open Approach (ICD-10-PCS; 2018-07-28)
PROC: 0WUF0JZ Supplement Abdominal Wall with Synthetic Substitute, Open Approach (ICD-10-PCS; 2018-07-28)
PROC: 0DNW0ZZ Release Peritoneum, Open Approach (ICD-10-PCS; 2018-07-28)
PROC: 0DNU0ZZ Release Omentum, Open Approach (ICD-10-PCS; 2018-07-28)
PROC: 0DBE0ZZ Excision of Large Intestine, Open Approach (ICD-10-PCS; 2018-07-28)
DX: Z43.3 Encounter for attention to colostomy (principal); F17.210 Nicotine dependence, cigarettes, uncomplicated; I10 Essential (primary) hypertension; K43.2 Incisional hernia without obstruction or gangrene; Z79.899 Other long term (current) drug therapy; Z78.1 Physical restraint status
CPT/HCPCS: 36415; 36430; 71045; 74177; 80048; 80053; 81001; 83735; 840; 84132; 85025; 85027; 86850; 86900; 86901; 86920; 87086; 87088; 87186; 88304; 94002; 94003; C1781; J0131; J0330; J0694; J1100; J1170; J1610; J1650; J1741; J1885; J1940; J2250; J2370; J2405; J2704; J3010; J3480; J3490; J7030; J7050; J7120; J8499; P9016; P9017; S0028

== ENCOUNTER → 2019-05-07 | Outpatient (CLI) | payer OTHER ==
--- NOTE | 2019-05-08 13:34 | WOMENS IMAGING REPORT ---
EXAM DESCRIPTION: 3D SCREENING MAMMO BILAT COMPLETED DATE/TIME: 05/07/2019 2:49 pm REASON FOR STUDY: Z12.31 ENCOUNTER FOR SCREENING MAMMOGRAM FOR MALIGNANT NEOPLASM OF BREAST Z12.31 ENCNTR SCREEN MAMMOGRAM FOR MALIGNANT NEOPLASM OF JESSIE COMPARISON: None. EXAM PARAMETERS: Views: Standard craniocaudal and mediolateral oblique views of each breast recorded using digital acquisition and breast tomosynthesis. Read with the assistance of CAD. .[facility], [facility] - [employer] Version 9.2 LIMITATIONS: None. FINDINGS: No suspicious masses, suspicious calcifications or architectural distortion. No areas of c oncern. IMPRESSION: NEGATIVE MAMMOGRAM. BIRADS 1. BREAST DENSITY: b. There are scattered areas of fibroglandular density. BIRAD: ASSESSMENT: 1 NEGATIVE RECOMMENDATION: ROUTINE SCREENING COMMENT: The patient has been notified of the results by letter per MQSA requirements. Additional no tification policies are in place for contacting patient with suspicious or incomplete findings. Quality ID #[id number]: The [employer] recommends an annual screening mammogram for women aged 40 years or over. This facility utilizes a reminder system to ensure that all patients receive reminder letters, and/or direct phone calls for appointments. This includes reminders for routine scr eening mammograms, diagnostic mammograms, or other Breast Imaging Interventions when appropriate. Th is patient will be placed in the appropriate reminder system. TECHNICAL DOCUMENTATION: FINDING NUMBER: (1) ASSESSMENT: (1) JOB ID: [id number] [employer]- All Rights Reserved Reading location - IP/workstation name: [email or web address]
== END ==
LOC: WI 15:27
PROVIDERS: ATTEND Clinical Nurse Specialist Adult Health
DX: Z12.31 Encounter for screening mammogram for malignant neoplasm of breast (principal)
CPT/HCPCS: 77063; 77067